=== PATIENT | female | born 1960 | race Two or more races ===

== ENCOUNTER → 2020-09-02 08:05 | Outpatient (BNVA) | payer OTHER, SELFPAY | PROVIDERS: PCP Internal Medicine; Visit Provider Anesthesiology | DX: M41.9 Scoliosis, unspecified (principal); G89.4 Chronic pain syndrome; M46.1 Sacroiliitis, not elsewhere classified | CPT/HCPCS: 99214 ==

== ENCOUNTER 2020-09-06 13:28 | Outpatient (REF) | payer OTHER, SELFPAY ==
--- NOTE | 2020-09-06 | MM_ITS ---
EXAMINATION: MM SCREENING DIGITAL BREAST TOMOSYNTHESIS, BILATERAL CLINICAL INFORMATION: Screening. Asymptomatic. The lifetime risk of breast cancer based on the Tyrer-Cuzick Model is 5%. COMPARISON: Mammography: 08/25/2019, 08/19/2018, 02/01/2017, 07/28/2015 TECHNIQUE: Digital breast tomosynthesis is performed in both the craniocaudal and mediolateral oblique views along with computer-aided detection (CAD). Synthesized 2D images are generated from the tomosynthesis. FINDINGS: There are scattered areas of fibroglandular density (ACR BI-RADS breast composition Category b). There are no significant masses, abnormal calcifications, or other abnormalities. The axilla and skin contours are unremarkable. No significant changes. IMPRESSION: No mammographic evidence of malignancy. ASSESSMENT: BI-RADS 1: Negative RECOMMENDATION: Routine annual mammography screening. This patient's information was entered into a reminder system with a target due date for their next mammogram.
== END 2020-09-06 13:29 | disposition home or self-care (01) ==
LOC: HO.MAMMO 13:28
PROVIDERS: PCP Emergency Medicine; Visit Provider Emergency Medicine
DX: Z12.31 Encounter for screening mammogram for malignant neoplasm of breast (principal)
CPT/HCPCS: 77063; 77067

== ENCOUNTER 2020-09-29 14:39 | Outpatient (REF) | payer OTHER, SELFPAY | END 2020-09-29 14:40 | disposition home or self-care (01) | LOC: HO.LAB 14:39 | PROVIDERS: PCP Emergency Medicine; Visit Provider Internal Medicine | DX: Z20.828 Contact with and (suspected) exposure to other viral communicable diseases (principal) | CPT/HCPCS: C9803; U0003 ==

== ENCOUNTER 2020-10-08 14:40 | Outpatient (REF) | payer OTHER, SELFPAY ==
--- NOTE | 2020-10-08 14:41 | CT_ITS ---
EXAMINATION: CT LUMBAR SPINE WITHOUT CONTRAST CLINICAL INFORMATION: Scoliosis. COMPARISON: Lumbar spine radiographs 05/14/2020. TECHNIQUE: Hatch Tender images were obtained. CT acquisition of the lumbar spine was performed without contrast. Data was reformatted into multiplanar images at the acquisition workstation. This CT examination was performed using dose optimization techniques as appropriate, variously including the following: *Automated exposure control *Adjustment of mA and/or kV according to patient size (this includes techniques or standardized protocols for targeted exams where dose is matched to indication/reason for exam; i.e. extremities or head) *Use of iterative reconstruction technique DLP; 274 mGy-cm FINDINGS: There is spinal scoliosis with a pronounced leftward convex curvature centered at the thoracolumbar junction. Bridging bone fuses multiple consecutive vertebral segments within the visualized thoracic spine and lumbar spine. L4-L5 and L5-S1 remain unfused. Alignment is otherwise normal in the sagittal dimension. Vertebral heights are preserved there is no evidence of acute fracture. There is severe degenerative arthrosis of the articular facet joints at L4-L5 and L5-S1. The canal is not well assessed on this examination due to inherent limitations of CT without intrathecal contrast. Grossly no evidence of canal compromise. Hypertrophic spurring of the left L4-L5 facet joint causes mild to moderate compression of the left L4 foraminal nerve root. Otherwise no neuroforaminal encroachment. Limited visualization of the retroperitoneal anatomy reveals a well marginated benign-appearing cystic lesion within the right kidney. Scattered atheromatous caliber indication involve the abdominal aorta. Psoas and paraspinal muscle groups are symmetric. CT/CT lumbar spine wo con IMPRESSION: There is severe spinal scoliosis with a pronounced leftward convex curvature at the thoracolumbar junction. Bridging bone fuses multiple consecutive vertebral segments within the lower thoracic and lumbar spine. L4-L5 and L5-S1 remain unfused. There is severe degenerative arthrosis of the articular facet joints at L4-L5 and L5-S1. Hypertrophic spurring of the left L4-L5 facet joint causes mild to moderate compression of left L4 foraminal nerve root. Otherwise no neuroforaminal compromise. Grossly no evidence of canal compromise within the [id number] of this examination.
== END 2020-10-08 14:41 | disposition home or self-care (01) ==
LOC: HO.CT 14:40
PROVIDERS: Visit Provider Anesthesiology
DX: M41.9 Scoliosis, unspecified (principal)
CPT/HCPCS: 72131

== ENCOUNTER → 2020-11-08 16:01 | Outpatient (BNVA) | payer OTHER, SELFPAY | PROVIDERS: PCP Emergency Medicine; Visit Provider Anesthesiology | DX: M41.9 Scoliosis, unspecified (principal); G89.4 Chronic pain syndrome; M46.1 Sacroiliitis, not elsewhere classified | CPT/HCPCS: 99212 ==

== ENCOUNTER 2020-11-24 11:54 | Outpatient (REF) | payer OTHER, SELFPAY ==
[2020-11-24 13:12] LABS: MANUAL DIFF FLAG NO
[2020-11-24 13:15] LABS: Basophils Percent Auto 0.6 % (0-2); Eosinophils Absolute Auto 0.2 X10*3/uL (0.0-0.4); Eosinophils Percent Auto 2.3 % (0-4); Hemoglobin 14.3 g/dl (12.0-16.0); Imm Gran Abs Auto 0.02 X10*3/uL (0.00-0.03); Imm Gran Pct Auto 0.3 % (0.0-0.4); Lymphocytes Absolute Auto 2.9 X10*3/uL (1.2-4.9); Lymphocytes Percent Auto 40.9 % (20-40); Mean Corpuscular HGB Conc 33.3 g/dl (31.0-35.0); Mean Corpuscular Hemoglobin 32.2 pg (27.0-33.0); Mean Corpuscular Volume 96.8 fL (80-98); Mean Platelet Volume 11.3 fL (9.4-12.3); Monocytes Absolute Auto 0.5 X10*3/uL (0.1-1.2); Monocytes Percent Auto 7.1 % (2-11); Neutrophils Absolute Auto 3.4 X10*3/uL (2.0-8.3); Neutrophils Percent Auto 48.8 % (45-73); Platelet Count 246 X10*3/uL (160-400); Red Blood Count 4.44 X10*6/uL (4.20-5.50); Red Cell Distribution Width 12.8 % (11.0-16.0)
[2020-11-24 13:38] LABS: Alanine Aminotransferase 17 U/L (0-31); Aspartate Amino Transferase 20 U/L (5-31); Cholesterol 156 mg/dL; HDL Cholesterol 52 mg/dL; LDL Cholesterol Calculated 58 mg/dl; Phosphorus 3.1 mg/dL (2.7-4.5); Triglycerides 230 mg/dL
[2020-11-24 13:40] LABS: Alanine Aminotransferase 16 U/L (0-31); Albumin Level 4.2 g/dL (3.5-5.0); Alkaline Phosphatase 85 U/L (39-117); Anion Gap 13 (12-20); Aspartate Amino Transferase 20 U/L (5-31); Bilirubin Total 0.5 mg/dL (0.0-1.0); Blood Urea Nitrogen 14 mg/dL (9-16); C Reactive Protein 0.06 mg/dL (< or = 0.50); Calcium 9.5 mg/dL (8.4-10.2); Carbon Dioxide 27 mmol/L (22-29); Chloride 105 mmol/L (96-108); Estimated Glomerular Filt Rate > 60; Glucose Random 79 mg/dL (60-115); Potassium 4.7 mmol/l (3.3-5.1); Sodium 140 mmol/L (135-145); Total Protein 7.5 g/dL (6.5-8.0)
[2020-11-24 13:59] LABS: Syphilis Screen Nonreactive (Nonreactive); TSH reflex Free T4 1.64 mIU/mL (0.32-4.0)
[2020-11-24 14:09] LABS: Estimated Average Glucose 111 mg/dL; Hemoglobin A1c % 5.5 %
[2020-11-24 14:12] LABS: Glucose Urine UA NEG (NEG); Leukocyte Esterase Urine NEG (NEG); Nitrite Urine NEG (NEG); Specific Gravity - Urine 1.025 (1.005-1.025); Urine Blood TRACE (NEG); Urine Ketones NEG (NEG); Urine Protein NEG (NEG-TRACE)
[2020-11-24 14:13] LABS: Appearance Urine CLEAR; Color Urine YELLOW
[2020-11-24 14:22] LABS: RBC Urine 0-2 /HPF (0); Squamous Epithelial Cell Urine 1+ /LPF; WBC Urine 0 /HPF (0-4)
[2020-11-24 14:41] LABS: Erythrocyte Sedimentation Rate 10 MM/HR (0-20)
[2020-11-25 10:27] LABS: HBsAGNum1 0.19 S/CO (0.00-0.99); Hepatitis B Surface Antigen Negative (Negative)
[2020-11-25 10:51] LABS: HBS Num1 189.52 mIU/mL (0-7.99); HBc Num1 0.11 S/CO (0.00-0.79); Hepatitis B Core Antibody Nonreactive (Nonreactive); ~Hepatitis B Surface Antibody REACTIVE (Nonreactive); ~Hepatitis C Antibody Reactive (Nonreactive)
[2020-11-25 12:07] LABS: Absolute CD3 Count 2276 cells/uL (840-3060); Absolute CD4 Count 963 cells/uL (490-1740); Absolute CD8 Count 1300 cells/uL (180-1170); Absolute Lymphocytes 3129 cells/uL (850-3900); CD4 CD8 Ratio 0.74 (0.86-5.00); Percent CD3 Cells 73 % (57-85); Percent CD4 Cells 31 % (30-61); Percent CD8 Cells 42 % (12-42)
[2020-11-25 18:27] LABS: C. trachomatis RNA TMA NOT DETECTED (NOT DETECTED); N. gonorrhoeae RNA TMA NOT DETECTED (NOT DETECTED)
[2020-11-26 08:00] LABS: Hepatitis A Antibody IgM 0.29 Index (0-0.79); ~Hepatitis A Antibody IgM Nonreactive (Nonreactive)
[2020-11-26 15:38] LABS: HIV RNA PCR Qn Copies <20 NOT DETECTED copies/mL (NOT DETECTED); HIV RNA PCR Qn Log Copies <1.30 NOT DETECTED (NOT DETECTED)
[2020-11-27 12:17] LABS: TS Negative Control Passed; TS Panel A 2; TS Panel B 2; TS Positive Control Passed; TSpotTB Negative (SeeBelow)
[2020-11-29 17:13] LABS: HSV 1 IgM IFA Negative (Negative); HSV 2 IgM IFA Negative (Negative)
== END 2020-11-24 11:55 | disposition home or self-care (01) ==
LOC: HO.LAB 11:54
PROVIDERS: Absent Provider Internal Medicine Infectious Disease; Visit Provider Student in an Organized Health Care Education/Training Program
DX: M19.90 Unspecified osteoarthritis, unspecified site (principal)
CPT/HCPCS: 36415; 80053; 80061; 81001; 83036; 84100; 84443; 84450; 84460; 85025; 85652; 86140; 86359; 86360; 86481; 86695; 86696; 86704; 86706; 86709; 86780; 86803; 87340; 87491; 87536; 87591

== ENCOUNTER → 2020-11-30 13:44 | Outpatient (BNVA) | payer OTHER, SELFPAY | PROVIDERS: Visit Provider Student in an Organized Health Care Education/Training Program | DX: Z13.89 Encounter for screening for other disorder (principal) | CPT/HCPCS: Q3014 ==

== ENCOUNTER 2021-01-11 07:01 | Outpatient (REF) | payer OTHER, SELFPAY | END 2021-01-11 07:02 | disposition home or self-care (01) | LOC: HO.RADIR 07:01 | PROVIDERS: Visit Provider Anesthesiology | DX: Z13.89 Encounter for screening for other disorder (principal) ==

== ENCOUNTER 2021-09-08 13:55 | Outpatient (REF) | payer OTHER, SELFPAY | END 2021-09-08 13:56 | disposition home or self-care (01) | LOC: HO.MAMMO 13:55 | PROVIDERS: Visit Provider Registered Nurse Community Health | DX: Z13.89 Encounter for screening for other disorder (principal) ==

== ENCOUNTER 2021-11-10 13:00 | Outpatient (REF) | payer OTHER, SELFPAY ==
--- NOTE | ~2021-11-10 | MM_ITS ---
EXAMINATION: MM SCREENING DIGITAL BREAST TOMOSYNTHESIS, BILATERAL CLINICAL INFORMATION: Screening. Asymptomatic. The lifetime risk of breast cancer based on the Tyrer-Cuzick Model is 4%. COMPARISON: Mammography: 09/06/2020, 08/25/2019, 08/19/2018 TECHNIQUE: Digital breast tomosynthesis is performed in both the craniocaudal and mediolateral oblique views along with computer-aided detection (CAD). Synthesized 2D images are generated from the tomosynthesis. FINDINGS: There are scattered areas of fibroglandular density (ACR BI-RADS breast composition Category b). There are no significant masses, abnormal calcifications, or other abnormalities. MM/MM tomosynthesis screening BI IMPRESSION: No mammographic evidence of malignancy. ASSESSMENT: BI-RADS 1: Negative RECOMMENDATION: Routine annual mammography screening. This patient's information was entered into a reminder system with a target due date for their next mammogram.
== END 2021-11-10 13:01 | disposition home or self-care (01) ==
LOC: HO.MAMMO 13:00
PROVIDERS: PCP Registered Nurse Community Health; Visit Provider Registered Nurse Community Health
DX: Z12.31 Encounter for screening mammogram for malignant neoplasm of breast (principal)
CPT/HCPCS: 77063; 77067

== ENCOUNTER 2022-11-16 13:07 | Outpatient (REF) | payer OTHER, SELFPAY ==
--- NOTE | ~2022-11-16 | MM_ITS ---
EXAMINATION: MM SCREENING DIGITAL BREAST TOMOSYNTHESIS, BILATERAL CLINICAL INFORMATION: Screening. Asymptomatic. The lifetime risk of breast cancer based on the Tyrer-Cuzick Model is 4.7%. COMPARISON: Mammography: November 10, 2021 and studies dating back to July 28, 2015 TECHNIQUE: Digital breast tomosynthesis is performed in both the craniocaudal and mediolateral oblique views along with computer-aided detection (CAD). Synthesized 2D images are generated from the tomosynthesis. FINDINGS: There are scattered areas of fibroglandular density (ACR BI-RADS breast composition Category b). There are no significant masses, abnormal calcifications, or other abnormalities. MM/MM tomosynthesis screening BI IMPRESSION: No significant changes from prior exam. ASSESSMENT: BI-RADS 1: Negative RECOMMENDATION: Routine annual mammography screening. This patient's information was entered into a reminder system with a target due date for their next mammogram.
== END 2022-11-16 13:08 | disposition home or self-care (01) ==
LOC: HO.MAMMO 13:07
PROVIDERS: Visit Provider Registered Nurse Community Health
DX: Z12.31 Encounter for screening mammogram for malignant neoplasm of breast (principal)
CPT/HCPCS: 77063; 77067

== ENCOUNTER 2023-06-11 14:09 | Outpatient (REF) | payer OTHER, SELFPAY ==
--- NOTE | ~2023-06-11 | US_ITS ---
EXAMINATION: US THYROID CLINICAL INFORMATION: Enlarged parathyroid gland. COMPARISON: Ultrasound thyroid 02/01/2017. TECHNIQUE: Linear transducer grayscale and color Doppler examination with attention to the region of the thyroid. FINDINGS: SIZE: Measurements of the thyroid lobes and nodules are given in sagittal, anteroposterior and transverse dimensions respectively. Right Thyroid Lobe: 4.7 x 1.5 x 1.6 cm, volume 5.7 mL. Previously 4.4 x 1.5 x 1.2 cm, volume 4.3 mL. Parenchyma: The gland echotexture is homogeneous. Thyroid vascularity is normal. Left Thyroid Lobe: 3.8 x 1.2 x 1.2 cm, volume 2.7 mL. Previously 3.4 x 1.3 x 1.1 cm, volume 2.5 mL. Parenchyma: The gland echotexture is homogeneous. Thyroid vascularity is normal. Isthmus: 0.2 cm in maximum AP dimension. Previously 0.3 cm. Estimated total number of nodules greater than or equal to 1 cm: 0. Speech Professor nodules are described as follows: 1. Location: Left mid. Size: 0.2 x 0.2 x 0.3 cm, volume 0.004 mL. Previously: New since the previous study. Nodule characteristics: Composition: Solid (2). Echogenicity: Hypoechoic (2). Shape: Not taller than wide (0). Margins: Ill-defined (0). Echogenic Foci: None (0). ACR TI-RADS total points: 3 ACR TI-RADS category: 3 NODES: No lymphadenopathy is seen in the tissue surrounding the thyroid gland. ADDITIONAL FINDINGS: A 0.6 x 0.4 x 0.7 cm hyperechoic soft tissue nodule inferior to the left thyroid lobe previously 0.7 x 0.4 x 0.6 cm not significantly changed which may reflect a prominent fatty hilum of a nonenlarged cervical node. A parathyroid adenoma would be considered less likely however if clinical concern recommend correlation with nuclear medicine parathyroid scan. US/US thyroid IMPRESSION: 1. A 0.7 cm hyperechoic soft tissue nodule inferior to the left thyroid lobe previously 0.7 cm not significantly changed which may reflect a prominent fatty hilum of a nonenlarged cervical node. A parathyroid adenoma would be considered less likely however if clinical concern recommend correlation with nuclear medicine parathyroid scan. 2. A 0.3 cm TR 3 left thyroid nodule which does not meet criteria for follow-up.
== END 2023-06-11 14:10 | disposition home or self-care (01) ==
LOC: HO.US 14:09
PROVIDERS: PCP Student in an Organized Health Care Education/Training Program; Visit Provider Student in an Organized Health Care Education/Training Program
DX: E21.5 Disorder of parathyroid gland, unspecified (principal)
CPT/HCPCS: 76536

== ENCOUNTER 2023-06-20 08:13 | Outpatient (REF) | payer OTHER, SELFPAY ==
[2023-06-20 11:20] LABS: MANUAL DIFF FLAG NO
[2023-06-20 11:50] LABS: Basophils Absolute Auto 0.1 X10*3/uL (0.0-0.2); Basophils Percent Auto 0.8 % (0-2); Eosinophils Absolute Auto 0.2 X10*3/uL (0.0-0.4); Eosinophils Percent Auto 2.2 % (0-4); Hematocrit 43.2 % (37.0-47.0); Imm Gran Abs Auto 0.01 X10*3/uL (0.00-0.03); Imm Gran Pct Auto 0.1 % (0.0-0.4); Lymphocytes Absolute Auto 3.2 X10*3/uL (1.2-4.9); Lymphocytes Percent Auto 43.6 % (20-40); Mean Corpuscular HGB Conc 32.4 g/dl (31.0-35.0); Mean Corpuscular Hemoglobin 30.2 pg (27.0-33.0); Mean Corpuscular Volume 93.3 fL (80.0-98.0); Mean Platelet Volume 11.8 fL (9.4-12.3); Monocytes Absolute Auto 0.7 X10*3/uL (0.1-1.2); Monocytes Percent Auto 8.8 % (2-11); Neutrophils Absolute Auto 3.3 x10*3/uL (2.0-8.3); Neutrophils Percent Auto 44.5 % (45-73); Platelet Count 223 X10*3/uL (160-400); Red Blood Count 4.63 X10*6/uL (4.20-5.50); Red Cell Distribution Width 12.7 % (11.0-16.0); White Blood Count 7.4 X10*3/uL (4.8-10.8)
[2023-06-20 12:01] LABS: Estimated Average Glucose 111 mg/dL; Hemoglobin A1c % 5.5 %
[2023-06-20 12:15] LABS: Alanine Aminotransferase 15 U/L (0-31); Albumin Level 3.9 g/dL (3.5-5.0); Alkaline Phosphatase 84 U/L (39-117); Anion Gap 15 (12-20); Aspartate Amino Transferase 20 U/L (5-31); Bilirubin Total 0.4 mg/dL (0.0-1.0); Blood Urea Nitrogen 17 mg/dL (9-16); Calcium 9.7 mg/dL (8.4-10.2); Carbon Dioxide 23 mmol/L (22-29); Chloride 107 mmol/L (96-108); Cholesterol 152 mg/dL; Estimated Glomerular Filt Rate > 60; Glucose Random 95 mg/dL (60-115); HDL Cholesterol 40 mg/dL; LDL Cholesterol Calculated 78 mg/dl; Potassium 4.1 mmol/L (3.3-5.1); Sodium 141 mmol/L (135-145); Total Protein 7.4 g/dL (6.5-8.0); Triglycerides 172 mg/dL
[2023-06-20 12:20] LABS: Creatinine Urine 126.23 mg/dL; HBS Num1 142.77 mIU/mL (0-7.99); HBc Num1 0.13 S/CO (0.00-0.79); HBsAGNum1 0.36 S/CO (0.00-0.99); Hepatitis B Core Antibody Nonreactive (Nonreactive); Hepatitis B Surface Antigen Negative (Negative); Syphilis Screen Nonreactive (Nonreactive); ~Hepatitis B Surface Antibody REACTIVE (Nonreactive)
[2023-06-20 12:21] LABS: ~HepC Num1 9.95 S/CO (0.00-0.79); ~Hepatitis C Antibody Reactive (Nonreactive)
[2023-06-20 12:35] LABS: TSH reflex Free T4 2.17 uIU/mL (0.32-4.0)
[2023-06-21 13:47] LABS: CT PCR NOT DETECTED (Not Detect.); NG PCR NOT DETECTED (Not Detect.)
[2023-06-22 13:12] LABS: HIV RNA PCR Qn Copies 128 copies/mL (NOT DETECTED); HIV RNA PCR Qn Log Copies 2.11 (NOT DETECTED)
[2023-06-23 17:49] LABS: HCV Log PCR <1.18 NOT DETECTED Log IU/mL (NOT DETECTED); HepC Viral Load <15 NOT DETECTED IU/mL (NOT DETECTED)
== END 2023-06-20 08:14 | disposition home or self-care (01) ==
LOC: HO.HHCL 08:13
PROVIDERS: Visit Provider Student in an Organized Health Care Education/Training Program
DX: Z00.00 Encounter for general adult medical examination without abnormal findings (principal); Z20.2 Contact with and (suspected) exposure to infections with a predominantly sexual mode of transmission; Z13.1 Encounter for screening for diabetes mellitus; E21.5 Disorder of parathyroid gland, unspecified; Z13.29 Encounter for screening for other suspected endocrine disorder; Z13.220 Encounter for screening for lipoid disorders
CPT/HCPCS: 0353U; 80053; 80061; 82043; 82306; 83036; 84443; 85025; 86704; 86706; 86780; 86803; 87340; 87522; 87536

== ENCOUNTER 2023-07-19 11:49 | Outpatient (AMB) | payer OTHER, SELFPAY ==
--- NOTE | 2023-07-19 12:12 | A.OFFVIS_ITS ---
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 Allergies No Known Allergies [No Known Allergies*] Allergy (Verified 07/19/23 12:12) Medication List - Last Reconciled 07/19/23 by Carol Farley PA-C [id number] 600-50-300 mg (Triumeq) 1 tab PO DAILY alprazolam (Xanax) 0.5 mg PO DAILY 1 day calcium carbonate-vitamin D3 500 mg-10 mcg (400 unit) 1 tab PO BID omeprazole 20 mg PO DAILY tizanidine 2 mg PO BID PRN valacyclovir 1,000 mg PO DAILY HPI HPI Comments History of Present Illness Details A 62 y/o female referred feeling of something coming up - omeprazole many years- random vomit-she has nause She has a lot of back pain- seen main management- Appetite is fair- No belly pain- feels burning in chest with heartburn- waterbrash-omeprazole better coverage than previous medication- Normal colonoscopy 2015- [facility]- she has no bowel issues- had constipation, that is now resolved. Reviewed medication list No abdominal pain, memetemisis, hematochezia, fever or chills. No CP, SOB, PFSH Medical History Chronic pain syndrome Inflammatory arthritis Sacroiliitis Scoliosis of thoracolumbar spine Surgical History History of back surgery History of liver biopsy Hx of tubal ligation Family History Mother CVD (cardiovascular disease) Diabetes Father CVD (cardiovascular disease) Sister Cancer Diabetes Social History Alcohol intake: never Review of Systems Const All systems reviewed & are unremarkable except as noted in HPI and below Card Denies chest pain and Denies dyspnea Resp Denies dyspnea GI Denies abdominal pain, Denies change in bowel habits, Reports dyspepsia, Reports heartburn and Reports nausea Psych Reports anxiety Physical Exam Vital Signs: Last Vital Signs Pulse 80 07/19/23 12:15 BP 135/80 07/19/23 12:15 BMI result Body Mass Index 25.9 Const General: cooperative, healthy appearing and comfortable Orientation/consciousness: patient oriented x3 Eyes Sclerae: sclerae normal Resp Effort & Inspection: normal respiratory effort and able to speak in complete sentences Auscultation: clear to auscultation bilaterally Cardio Rate: regular rate Rhythm: regular rhythm Heart sounds: S1 normal heart sound present and S2 normal heart sound present GI Palpation (GI): Soft to palpation and nontender Auscultation: normal bowel sounds Skin General skin exam: no rashes or lesions noted Neuro General: patient oriented x3 Extrem General: Yes full ROM Psych Appearance: grossly normal Mental Status: mental status grossly normal Speech and movement: Clear speech present Affect: normal affect Attitude: cooperative Thought process: Normal thought process present Thought content: Normal thought content present Assessment & Plan Assessment & Plan (1) Acid reflux: Comment: has had trial of other ppi- ? carafate Code(s): K21.9 - Gastro-esophageal reflux disease without esophagitis Plan: cont ppi (2) Nausea and vomiting: Comment: EGD- r/o PUD, esophagitis, other endoscopic finding to account for sx- Code(s): R11.2 - Nausea with vomiting, unspecified Plan: Will schedule Barium- may get sooner than EGD- Omeprazole - be consistent Reviewed reflux precautions Plan Barium EGD F/u wks Orders: Orders [place] barium swallow 07/19/23 K21.9 - Gastro-esophageal reflux disease without esophagitis, R11.2 - Nausea with vomiting, unspecified EDG - GI Use Only 07/19/23 K21.9 - Gastro-esophageal reflux disease without esophagitis, R11.2 - Nausea with vomiting, unspecified Patient Instructions: Will schedule Barium- may get sooner than EGD- Omeprazole - be consistent - ID triggers Reviewed reflux precautions, avoid culprits EGD- discussed procedure- need escort, rare risks Will see back for progress- sooner if need Call with any concerns Coding Level of Care Code New Pt Level 3 (35449) Diagnoses Acid reflux K21.9 Nausea and vomiting R11.2 Time Spent (min) 35 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
[2023-07-19 12:15] VITALS: BP 135/80; PULSE 80; BMI 25.9
== END 2023-07-19 12:37 | disposition home or self-care (01) ==
PROVIDERS: PCP Student in an Organized Health Care Education/Training Program; Visit Provider Physician Assistant
DX: K21.9 Gastro-esophageal reflux disease without esophagitis (principal); R11.2 Nausea with vomiting, unspecified
CPT/HCPCS: 99203

== ENCOUNTER → 2023-07-19 11:49 | Outpatient (BNVA) | payer OTHER, SELFPAY | PROVIDERS: PCP Student in an Organized Health Care Education/Training Program; Visit Provider Physician Assistant | DX: K21.9 Gastro-esophageal reflux disease without esophagitis (principal); R11.2 Nausea with vomiting, unspecified | CPT/HCPCS: 99202 ==

== ENCOUNTER 2023-08-10 08:37 | Day surgery (SDC) | payer OTHER, SELFPAY ==
[2023-08-08 14:31] VITALS: BMI 25.9
--- NOTE | 2023-08-09 12:07 | HO.ANESPROP2 ---
HPI - Anesthesia Eval Consult details Narrative: 62yo F for Upper Endoscopy PMFSH Active Problems Active Problems: All Active Problems (Updated 07/24/23 @ 10:40 by Carol Farley PA-C) Nausea and vomiting (Acute) Acid reflux (Acute) Inflammatory arthritis (Acute) Sacroiliitis (Acute) Chronic pain syndrome (Acute) Scoliosis of thoracolumbar spine (Acute) Past Medical History Medical History (Updated 08/20/23 @ 11:18 by Tito Santiago MD) Insomnia Asthma HIV disease Inflammatory arthritis Sacroiliitis Chronic pain syndrome Scoliosis of thoracolumbar spine Family History Family History Mother CVD (cardiovascular disease) Diabetes Father CVD (cardiovascular disease) Sister Cancer Diabetes Surgical History Surgical History Hx of esophagogastroduodenoscopy History of liver biopsy History of back surgery Hx of tubal ligation Social History Social History Alcohol intake: never Patient Tobacco Use Status: Former Tobacco user Quit Date: 1 yr ago Meds Allergies Allergy/AdvReac Type Severity Reaction Status Date / Time No Known Allergies Allergy Verified 08/20/23 09:38 [No Known Allergies*] Home Medications Medication Instructions Recorded Confirmed Last Taken Type valacyclovir 1 gram tablet 1,000 mg PO DAILY 09/02/20 08/20/23 Unknown History cabotegravir ER 400 mg/2 ml IM 08/10/23 08/20/23 Unknown History mL-rilpivirine ER 600 mg/2mL IM suspension,ER (Cabenuva) albuterol sulfate 90 mcg/actuation 2 puff inhalation Q4-6H PRN 08/20/23 08/20/23 Unknown History aerosol inhaler (Ventolin HFA) fluticasone propionate 110 2 puff inhalation BID 08/20/23 08/20/23 Unknown History mcg/actuation HFA aerosol inhaler (Flovent HFA) omeprazole 20 mg tablet,delayed 40 mg PO DAILY 08/20/23 08/20/23 Unknown History release zolpidem 10 mg tablet 10 mg PO BEDTIME PRN 08/20/23 08/20/23 Unknown History Exam Exam Date and Time: August 09, 2023 1207 Height,Weight and Vital Signs: Height 4 ft 9 in Weight 54.199 kg Pertinent Lab Results Pertinent Lab Results: Laboratory Tests 06/20/23 08:18 WBC 7.4 Hgb 14.0 Hct 43.2 Plt Count 223 Sodium 141 Potassium 4.1 Chloride 107 Carbon Dioxide 23 BUN 17 H Creatinine 0.80 Assessment and Plan Assessment Anesthesia Assessment: Chart Reviewed
[2023-08-10 09:19] VITALS: BP 112/69; PULSE 59; RESP 15; TEMP 35.9; O2SAT 96
--- NOTE | 2023-08-10 09:21 | MHC.SHP ---
Pre-Procedural Eval Section A Date of Service: 08/10/23 Section B Chief Complaint: Gastro-esophageal reflux disease without esophagit Details of Present Illness: dysphagia Relevant Family History (Specify if Yes): No Relevant Social History: None Present Medications: see Short Stay Collaborative assessment Medical History: Significant History (Chronic pain syndrome Inflammatory arthritis Sacroiliitis Scoliosis of thoracolumbar spine) History of Previous Operations: Relevant previous surgery/procedure and date(s) (History of back surgery History of liver biopsy Hx of tubal ligation) Allergies: Allergies Allergy/AdvReac Type Severity Reaction Status Date / Time No Known Allergies Allergy Verified 07/19/23 12:12 [No Known Allergies*] Review of Systems Sugical H&P ROS: Negative: Constitution, Cardiovascular, Respiratory, Neurological, Psychiatric, Hem-Onc, Allergic/Immunologic, Gastrointestinal, Genitourinary, Musculoskeletal, Integumentary, Endocrine and Eyes/Ears/Nose/Throat Exam Surgical H&P Exam: Normal: HEENT, Normal: Heart, Normal: Lungs, Normal: Extremities, Normal: Abdomen, Normal: Skin and Normal: Neurological Plan Diagnosis/Plan: Unchanged I have reviewed the history and physical and performed a pertinent physical examination on my patient. No changes have occurred unless specified. Time Spent With Patient Time: Total time managing care of this patient today ____ minutes.
[2023-08-10] MEDS: Lactated Ringers 1,000 ML 100 ML IVCONT (09:22)
--- NOTE | 2023-08-10 09:51 | HO.ANESPROP2 ---
[facility] Active Problems Active Problems: All Active Problems (Updated 08/10/23 @ 08:51 by Shannon Carter RN) Nausea and vomiting (Acute) Acid reflux (Acute) Inflammatory arthritis (Acute) Sacroiliitis (Acute) Chronic pain syndrome (Acute) Scoliosis of thoracolumbar spine (Acute) Past Medical History Medical History HIV disease Inflammatory arthritis Sacroiliitis Chronic pain syndrome Scoliosis of thoracolumbar spine Family History Family History Mother CVD (cardiovascular disease) Diabetes Father CVD (cardiovascular disease) Sister Cancer Diabetes Family history of problems with anesthesia: No Surgical History Surgical History Hx of esophagogastroduodenoscopy History of liver biopsy History of back surgery Hx of tubal ligation History of Problems with Anesthesia: No Social History Social History Alcohol intake: never Patient Tobacco Use Status: Former Tobacco user Quit Date: 1 yr ago Use of substances other than those prescribed or required for medical reasons: No Are you DNR?: No Advance Directives: No Advance Directives Information Provided: Yes Meds Allergies Allergy/AdvReac Type Severity Reaction Status Date / Time No Known Allergies Allergy Verified 07/19/23 12:12 [No Known Allergies*] Active Medications: Current Medications Lactated Ringer's (Lr) 1,000 mls @ 100 mls/hr IVCONT .Q10H MIKY Last Admin: 08/10/23 09:22 Dose: 100 mls/hr Home Medications Medication Instructions Recorded Confirmed Last Taken Type calcium carbonate 500 mg-vitamin 1 tab PO BID 09/02/20 11/08/20 Unknown History D3 10 mcg (400 unit) tablet tizanidine 2 mg tablet 2 mg PO BID PRN Pain 09/02/20 11/08/20 Unknown History valacyclovir 1 gram tablet 1,000 mg PO DAILY 09/02/20 11/08/20 Unknown History omeprazole 20 mg tablet,delayed 20 mg PO DAILY 11/30/20 Unknown History release amoxicillin 875 mg-potassium 1 tab PO BID 08/10/23 08/10/23 Unknown History clavulanate 125 mg tablet cabotegravir ER 400 mg/2 ml IM 08/10/23 08/10/23 Unknown History mL-rilpivirine ER 600 mg/2mL IM suspension,ER (Cabenuva) Exam Exam Date and Time: August 10, 2023 0951 Height,Weight and Vital Signs: Height 4 ft 9 in Weight 54.199 kg Last Vital Signs Temp 96.7 F L 08/10/23 09:19 Pulse 59 08/10/23 09:19 Resp 15 08/10/23 09:19 BP 112/69 08/10/23 09:19 Pulse Ox 96 08/10/23 09:19 O2 Del Method Room Air 08/10/23 09:19 Airway Mallampati Class: II TM Dist: >3cm Neck ROM: Full Heart: RRR Lungs: CTA Assessment and Plan Assessment Anesthesia Assessment: Anesthesia Plan Discussed Final Anesthetic Review Family History of Problems with Anesthesia: No History of Problems with Anesthesia: No NPO: Yes ASA Class: II Final Preanesthetic Review: Meds/Allgs Chart Reviewed, Consent Obtained/Reviewed and Anes Risks/Benef Reviewed Patient Risk: Low Procedure Risk: Low Anesthetic Plan Anesthetic Plan: MAC: Disposition: Standard PACU
--- NOTE | 2023-08-10 10:39 | W.PM.OPN ---
Operative Note Operative Note Date of Service: 08/10/23 Narrative: Procedure Description: EGD Indication: gerd, dysphagia Anesthesia: MAC FLEXIBLE TRANSORAL UPPER GASTROINTESTINAL ENDOSCOPY UPPER ENDOSCOPY Consent: Indications for the procedure and potential complications of bleeding, perforation, reaction to medications and missed diagnosis were discussed with the patient and informed consent was obtained. Instrument: Olympus GIF H 190 J mid size upper endoscope Monitoring: Vital signs and clinical assessment, continuous EKG monitoring, Pulse oximetry, Carbon Dioxide monitoring and blood pressure monitoring were done throughout the procedure. Procedure: The patient was placed in the left lateral decubitis position and pre-procedure medications were administered and a bite block was placed. The endoscope was inserted into the mouth and advanced under direct vision to the third part of duodenum. A careful inspection was made as the upper endoscope was withdrawn including a retroflexed examination of the proximal stomach; Findings and interventions are described below. Findings: Larynx:normal Esophagus: GE junction at 28 cm, diaphragm hiatus at 34 cm, consistent with 6 cm sliding hiatal hernia, balloon dilation 18 mm at UES with tear noted, dilated to 19 mm at LES with small tear seen, bx taken from GEJ and random esophagus --esophagitis noted at GEJ Stomach: Patchy gastric erythema. Biopsies were obtained. Grade 2 flap valve on retroflexed examination of the cardia. Duodenum: Normal bulb and descending duodenum, Intervention: Biopsies as noted above, balloon dilation Impression/Findings: gastritis esophageal strictures esophgaitis PLAN: high dose PPI Reflux precautions Magic mouthwash consider surgical referral for hernia repair
[2023-08-10 10:47] VITALS: BP 89/49; PULSE 63; RESP 16; TEMP 36.1; O2SAT 98
[2023-08-10 10:52] VITALS: BP 104/61; PULSE 62; RESP 14; O2SAT 97
[2023-08-10 11:02] VITALS: BP 114/65; PULSE 58; RESP 16; O2SAT 98
[2023-08-10] MEDS: Acetaminophen 325 MG TABLET 975 MG PO (11:09)
[2023-08-10] MEDS: Mag&Al/Sim/Diphenhyd/Lidocaine 10 ML ORAL.SUSP PO (11:10)
[2023-08-10 11:17] VITALS: BP 124/69; PULSE 66; RESP 14; TEMP 36.1; O2SAT 98
--- NOTE | 2023-08-10 11:19 | HO.POSTANES ---
Post Anesthesia Evaluation Post Anesthesia Evaluation Date of Service: 08/10/23 Vital Signs: Vital Signs Temp Pulse Resp BP Pulse Ox O2 Del Method 08/10/23 11:02 58 16 114/65 98 Room Air 08/10/23 10:52 62 14 104/61 97 Room Air 08/10/23 10:47 97 F 63 16 89/49 L 98 Room Air 08/10/23 09:19 96.7 F L 59 15 112/69 96 Room Air Anesthesia: Monitored Mental Status: Awake Pain Control: Satisfactory Nausea/Vomiting: None Hydration: Adequate Anesthesia-Related Issues: No Anes. Related Issues
== END 2023-08-10 11:32 | disposition home or self-care (01) ==
PROVIDERS: PCP Student in an Organized Health Care Education/Training Program; Visit Provider Internal Medicine Gastroenterology
PROC: 0DJ08ZZ Inspection of Upper Intestinal Tract, Via Natural or Artificial Opening Endoscopic (ICD-10-PCS; CPT 43235; principal; 2023-08-10 10:10)
DX: R13.10 Dysphagia, unspecified (principal); K21.9 Gastro-esophageal reflux disease without esophagitis; K22.2 Esophageal obstruction; K29.50 Unspecified chronic gastritis without bleeding; K44.9 Diaphragmatic hernia without obstruction or gangrene; B20 Human immunodeficiency virus [HIV] disease; G89.4 Chronic pain syndrome; M13.80 Other specified arthritis, unspecified site; M46.1 Sacroiliitis, not elsewhere classified; M41.9 Scoliosis, unspecified; Z79.899 Other long term (current) drug therapy; Z98.890 Other specified postprocedural states
CPT/HCPCS: 43249; 43239; 88305; 88342; C1726

== ENCOUNTER → 2023-08-10 08:37 | Outpatient (BNV) | payer OTHER, SELFPAY | PROVIDERS: PCP Student in an Organized Health Care Education/Training Program; Visit Provider Internal Medicine Gastroenterology | DX: K21.9 Gastro-esophageal reflux disease without esophagitis (principal); K22.2 Esophageal obstruction; R13.10 Dysphagia, unspecified; K44.9 Diaphragmatic hernia without obstruction or gangrene; K29.70 Gastritis, unspecified, without bleeding | CPT/HCPCS: 43239; 43249 ==

== ENCOUNTER 2023-08-20 09:22 | Outpatient (AMB) | payer OTHER, SELFPAY ==
--- NOTE | 2023-08-20 09:24 | A.OFFVIS_ITS ---
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 Meza for a large hiatal hernia. The patient complains of persistent GERd and a sense of choking or being out of breath PFSH Medical History (Updated 08/20/23 @ 11:18 by Tito Santiago MD) Insomnia Asthma HIV disease Inflammatory arthritis Sacroiliitis Chronic pain syndrome Scoliosis of thoracolumbar spine Surgical History Hx of esophagogastroduodenoscopy History of liver biopsy History of back surgery Hx of tubal ligation Family History Mother CVD (cardiovascular disease) Diabetes Father CVD (cardiovascular disease) Sister Cancer Diabetes Social History Alcohol intake: never Patient Tobacco Use Status: Former Tobacco user Quit Date: 1 yr ago Physical Exam Vital Signs: Last Vital Signs Temp 96.8 F 08/20/23 09:29 Pulse 74 08/20/23 09:29 BP 141/67 H 08/20/23 09:29 Pulse Ox 96 08/20/23 09:29 Oxygen Delivery Method Room Air 08/20/23 09:29 BMI result Body Mass Index 25.2 GI Inspection: Yes normal to inspection (abdroid body habitus) and Yes incision (well healed) Palpation (GI): Soft to palpation Extrem Right lower extremity: normal to inspection Left lower extremity: normal to inspection Assessment & Plan Assessment & Plan (1) Acid reflux: Comment: has had trial of other ppi- ? carafate Code(s): K21.9 - Gastro-esophageal reflux disease without esophagitis Plan: 1. We discussed the potential etiology of the hernia that could be of traumatic etiology worsened by his weight. We discussed the details of the diaphragmatic hernia repair and the potential technical challenges such as being able to achieve enough mobilization of the esophagus back in the abdomen and being able to close the diaphragmatic muscle (crura) primarily with sutures. We also discussed the possibility of using a biologic mesh to close the hernia defect if the crura cannot be adequately re-approximated primarily with sutures. We also discussed the option of doing a gastropexy or a fundoplication to prevent postoperative reflux and prevent hernia recurrence. As we discussed, I favor the gastropexy as the fundoplication can cause several distrurbing symptoms such as gas-bloating, flatulence, inability to burp which can be bothersome to patients especially for him with a history of IBS. Also we discussed the complexity of a potential hernia recurrence in association with a hernia recurrence. He was in agreement not to have a fundoplication. 2. Start Sucralfate 2 teaspoons every 6 hours 3. It will be essential due to the body habitus to lose weight preoperatively. 4. Nutritional counseling. Start with 2 CELEBRATE REBUILD protein (buy at hospital's gift shop) shakes (HALF scoop EACH in 8oz low fat unsweetened almond milk each) at 11am-1pm and 2pm-4pm, dinner at 5pm (7 forks of protein and 7 forks of salad/vegetables) AND TWO CELEBRATE protein bars after dinner at 7pm- 9pm and 11pm-1am. So you do 2 protein shakes, 2 protein bars and one meal per day. Meal to include lean meat (beef, fish, pork, turkey, chicken), or ku[place]i yogurt, or egg whites, or beans with a salad with olive oil and fruits (berries, pears, apples, kiwi). Avoid salt, breads, potatoes, rice, pasta, desserts. 5. Each shake would be drunk slowly, like coffee in a period of 2 hours. 6. Cut each bar in 4 pieces and eat each piece in 30min ?to make each bar last 2 hours. 7. I emphasized the importance of measuring accurately the food portion and measure it when serving the food in plate 8. The meal portions include 10 full-size forks of meat and 10 full-size forks of salad. You always eat the meat portion but you can replace up to 5 forks for salad/vegetables with rice, potatoes or pasta, or a fruit ?if you like. The less you do it the better weight loss will be. 9. One full-size fork is what it can be scooped on the fork without falling aside and not what can be bit with the fork. Use regular forks like those you find in a typical restaurant. 10.? Please send me weight measurements as soon as possible and then once a week. Always include your diet and exercise plan. 9. Start treadmill with an incline of 2.0 and speed of 2.5. Increase incline by 1 every 3 min to a max incline of 8.0, stay 3min at 8.0 and then return to 2.0 and repeat same steps until calorie goal is met. Goal is to burn 2000 calories per week on exercise, which means either 300 calories daily, or 400 calories 5 days per week, or 500 calories 4 days per week, or 650 calories 3 days per week. 10. Alternatively start stationary bike at a resistance level of 4.0 Increase level by 1.0 every 3 min to a max level of 10.0. Stay at this level for 3 min and then return to level 4.0 and repeat same steps until 300 calories are burned. Velocity target is 12mph and heart rate is 145 bpm. Goal is to burn 2000 calories per week on exercise 11. Goal is to lose at least 1.5-2lbs per week (2) Diaphragmatic hernia: Code(s): K44.9 - Diaphragmatic hernia without obstruction or gangrene (3) Asthma: Code(s): J45.909 - Unspecified asthma, uncomplicated (4) HIV disease: Code(s): B20 - Human immunodeficiency virus [HIV] disease (5) Insomnia: Code(s): G47.00 - Insomnia, unspecified (6) Scoliosis of thoracolumbar spine: Code(s): M41.9 - Scoliosis, unspecified Coding Level of Care Code New Pt Level 5 (58456) Diagnoses Acid reflux K21.9 Diaphragmatic hernia K44.9 Asthma J45.909 HIV disease B20 Insomnia G47.00 Scoliosis of thoracolumbar spine M41.9 Time Spent (min) 60 Comment With a Italian speaking diplomatic interpreter/translator
[2023-08-20 09:29] VITALS: BP 141/67; PULSE 74; TEMP 36; O2SAT 96; BMI 25.2
== END 2023-08-20 11:26 | disposition home or self-care (01) ==
PROVIDERS: PCP Student in an Organized Health Care Education/Training Program; Visit Provider Surgery
DX: K44.9 Diaphragmatic hernia without obstruction or gangrene (principal); J45.909 Unspecified asthma, uncomplicated; B20 Human immunodeficiency virus [HIV] disease; G47.00 Insomnia, unspecified; M41.9 Scoliosis, unspecified
CPT/HCPCS: 99205

== ENCOUNTER → 2023-08-20 09:22 | Outpatient (BNVA) | payer OTHER, SELFPAY | PROVIDERS: PCP Student in an Organized Health Care Education/Training Program; Visit Provider Surgery ==

== ENCOUNTER 2023-09-26 07:42 | Outpatient (REF) | payer OTHER, SELFPAY ==
--- NOTE | ~2023-09-26 | FL_ITS ---
EXAMINATION: XR FLUOROSCOPY BARIUM SWALLOW AND UPPER GI WITH AIR CLINICAL INFORMATION: Reflux, nausea/vomiting COMPARISON: None relevant. TECHNIQUE: Fluoroscopic air contrast upper GI examination was performed utilizing standard techniques with thin and thick barium and effervescent granules. Numerous spot images were obtained. 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 No evidence of stricture, mass, or ulcerations identified. Nonpropulsive tertiary contractions are noted throughout the esophagus consistent with esophageal dysmotility. A large type III hiatal hernia is present. Gastroesophageal reflux is seen up to the thoracic inlet. Dual contrast and single contrast images of the stomach demonstrated slightly abnormal gastric fold appearance, especially in the fundus/hiatus hernia. Hyperplastic tiny polyps are likely present. Remainder of the stomach has the appearance of atrophic gastritis. No ulcerations. No masses or contour abnormalities. Contrast freely passed into the gastric antrum and duodenal bulb without delay. Single and air-contrast images of the duodenal bulb demonstrate no abnormality. The duodenal sweep has a normal appearance, course, and mucosal fold appearance. The imaged proximal jejunum has a normal fold pattern and caliber. FLUOROSCOPY TIME: 4 minutes 10 seconds Number of Spot Images: 10 Number of Cine: 8 DOSE AREA PRODUCT: 2528 uGy-m2 (microgray-meter squared) FL/FL barium swallow with air IMPRESSION: 1. 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 2. Esophageal dysmotility, moderate to marked. 3. Large type III hiatal hernia. Contains the majority of the fundus of the stomach. 4. Significant spontaneous esophageal reflux. 5. Slightly abnormal gastric folds noted, some suggesting small polyps, otherwise the pattern resembles atrophic gastritis. Correlation with endoscopy advised. 6. Normal-appearing duodenal bulb, sweep, and proximal jejunum. This procedure was performed by Salazar Luna PA-C, and supervised by Dr. Campoverde
== END 2023-09-26 07:43 | disposition home or self-care (01) ==
LOC: HO.XRAY 07:42
PROVIDERS: PCP Student in an Organized Health Care Education/Training Program; Visit Provider Physician Assistant
DX: K21.9 Gastro-esophageal reflux disease without esophagitis (principal); R11.2 Nausea with vomiting, unspecified
CPT/HCPCS: 74221

== ENCOUNTER → 2023-09-26 07:44 | Outpatient (BNV) | payer OTHER, SELFPAY | PROVIDERS: PCP Student in an Organized Health Care Education/Training Program; Visit Provider Radiology Diagnostic Radiology | DX: K21.9 Gastro-esophageal reflux disease without esophagitis (principal) | CPT/HCPCS: 74221 ==

== ENCOUNTER 2023-10-25 11:42 | Outpatient (AMB) | payer OTHER, SELFPAY ==
--- NOTE | 2023-10-25 11:45 | A.OFFVIS_ITS ---
Intake Vital Signs 10/25/23 11:47 Height 5 ft 9.5 in Weight 119 lb 0.794 oz BMI 17.3 BP 133/75 Blood Pressure Location Lt brachial Position Sitting Pulse 63 Intake Visit Reasons: follow up Ba Swallow results Intake Note: She is here today to go over the results to the ba swallow. Allergies No Known Allergies [No Known Allergies*] Allergy (Verified 08/20/23 09:38) Medication List - Last Reconciled 10/25/23 by Carol Farley PA-C albuterol sulfate 90 mcg/actuation (Ventolin HFA) 2 puffs inhalation Q4-6H PRN cabotegravir-rilpivirine 400 mg/2 mL- 600 mg/2 mL ER (Cabenuva) mL IM docusate sodium 100 mg PO BID fluticasone propionate 110 mcg/actuation (Flovent HFA) 2 puffs inhalation BID loratadine 10 mg PO DAILY omeprazole 40 mg PO DAILY valacyclovir 1,000 mg PO DAILY zolpidem 10 mg PO BEDTIME PRN HPI HPI Comments History of Present Illness Details 62-year-old female follows up after rece nt barium swallow She had had EGD back in July which showed esophageal stricture she was then sent for barium-she had been sent to surgery in the interim Reviewed EGD findings- Esophagus: GE junction at 28 cm, diaphragm hiatus at 34 cm, consistent with 6 cm sliding hiatal hernia, balloon dilation 18 mm at UES with tear noted, dilated to 19 mm at LES with small tear seen, bx taken from GEJ and random esophagus --esophagitis noted at GEJ Stomach: Patchy gastric erythema. Biopsies were obtained. Grade 2 flap valve on retroflexed examination of the cardia. Duodenum: Normal bulb and descending duodenum, Intervention: Biopsies as noted above, balloon dilation She saw Dr. Ty- she declines surgery- she was recommended wt loss- omeprazole 40 BID She declined surgery, she would prefer to manage without. She is reluctant to lose weight to have the surgery as was recommended. She has had no further reflux symptoms Appetite is good She has no GI complaints She is here with her daughter who interprets for her She has no nausea, vomiting, hematemesis, hematochezia fever chills [facility] Medical History (Updated 10/25/23 @ 13:42 by Carol Farley PA-C) Insomnia Asthma HIV disease Inflammatory arthritis Sacroiliitis Chronic pain syndrome Scoliosis of thoracolumbar spine Surgical History (Updated 10/02/23 @ 14:36 by Macey Baker) Hx of esophagogastroduodenoscopy History of liver biopsy History of back surgery Hx of tubal ligation Family History Mother CVD (cardiovascular disease) Diabetes Father CVD (cardiovascular disease) Sister Cancer Diabetes Social History Alcohol intake: never Patient Tobacco Use Status: Former Tobacco user Quit Date: 1 yr ago Review of Systems Const All systems reviewed & are unremarkable except as noted in HPI and below Card Denies chest pain and Denies dyspnea Resp Denies dyspnea GI Denies abdominal pain, Denies change in stool character, Denies heartburn and Denies loose stools Physical Exam Vital Signs: Last Vital Signs Pulse 63 10/25/23 11:47 BP 133/75 10/25/23 11:47 BMI result Body Mass Index 17.3 Const General: cooperative, healthy appearing, comfortable and no acute distress Orientation/consciousness: patient oriented x3 Limitations: language barrier Eyes Sclerae: sclerae normal Resp Effort & Inspection: normal respiratory effort and able to speak in complete sentences Skin General skin exam: no rashes or lesions noted Neuro General: patient oriented x3 Extrem General: Yes full ROM Psych Appearance: grossly normal and well kempt Mental Status: mental status grossly normal Speech and movement: Normal speech and movement present and Clear speech present Affect: normal affect Attitude: cooperative Thought process: Normal thought process present Thought content: Normal thought content present Results Reviewed Results Reviewed: 08/10/23-Dr. Meza mpression/Findings: gastritis esophageal strictures esophgaitis PLAN: high dose PPI Reflux precautions Magic mouthwash consider surgical referral for hernia repair FL/FL barium swallow with air IMPRESSION: 1. 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 2. Esophageal dysmotility, moderate to marked. 3. Large type III hiatal hernia. Contains the majority of the fundus of the stomach. 4. Significant spontaneous esophageal reflux. 5. Slightly abnormal gastric folds noted, some suggesting small polyps, otherwise the pattern resembles atrophic gastritis. Correlation with endoscopy advised. 6. Normal-appearing duodenal bulb, sweep, and proximal jejunum. Assessment & Plan Assessment & Plan (1) Hiatal hernia: Comment: Declined surgery, continue PPI avoid weight gain Code(s): K44.9 - Diaphragmatic hernia without obstruction or gangrene Plan: Continue to follow with Dr. Santiago for plan of care (2) Acid reflux: Comment: has had trial of other ppi- ? carafate Code(s): K21.9 - Gastro-esophageal reflux disease without esophagitis (3) Feline esophagus: Comment: Barium swallow Code(s): K22.89 - Other specified disease of esophagus Plan: Reinforced good management of acid reflux Plan ck w/ T how long ppi 40 bid REF ppi 40 QD- RTC 3 mos Medications: Changed From omeprazole 40 mg PO DAILY To omeprazole 40 mg (2 x 20 mg) PO DAILY 30 days 60 tabs 4RF Patient Instructions: Pleasant 62-year-old female large hiatal hernia him follows up after barium swallow She will continue to monitor symptoms, however refilled omeprazole 40 mg daily-she will report any worsening of symptoms Reviewed reflux precautions-reinforced importance of good management of acid reflux Reviewed dietary modifications, avoid weight gain Encouraged to call with any questions or concerns Follow-up with Dr. Santiago her plan of care for large hiatal hernia Coding Level of Care Code Est Pt Level 4 (31359) Diagnoses Hiatal hernia K44.9 Acid reflux K21.9 Feline esophagus K22.89 Time Spent (min) 30 Comment Daughter interpreted
[2023-10-25 11:47] VITALS: BP 133/75; PULSE 63; BMI 17.3
== END 2023-10-25 13:50 | disposition home or self-care (01) ==
PROVIDERS: PCP Student in an Organized Health Care Education/Training Program; Visit Provider Physician Assistant
DX: K44.9 Diaphragmatic hernia without obstruction or gangrene (principal); K21.9 Gastro-esophageal reflux disease without esophagitis; K22.89 Other specified disease of esophagus
CPT/HCPCS: 99214

== ENCOUNTER → 2023-10-25 11:42 | Outpatient (BNVA) | payer OTHER, SELFPAY | PROVIDERS: PCP Student in an Organized Health Care Education/Training Program; Visit Provider Physician Assistant | DX: K44.9 Diaphragmatic hernia without obstruction or gangrene (principal); K21.9 Gastro-esophageal reflux disease without esophagitis; K22.89 Other specified disease of esophagus | CPT/HCPCS: 99212 ==

== ENCOUNTER 2023-11-22 12:54 | Outpatient (REF) | payer OTHER, SELFPAY | END 2023-11-22 12:55 | disposition home or self-care (01) | LOC: HO.MAMMO 12:54 | PROVIDERS: PCP Student in an Organized Health Care Education/Training Program; Visit Provider Student in an Organized Health Care Education/Training Program | DX: Z12.31 Encounter for screening mammogram for malignant neoplasm of breast (principal) | CPT/HCPCS: 77063; 77067; 77080 ==

== ENCOUNTER → 2023-11-22 13:15 | Outpatient (BNV) | payer OTHER, SELFPAY | PROVIDERS: PCP Student in an Organized Health Care Education/Training Program; Visit Provider Radiology Diagnostic Radiology | DX: Z12.31 Encounter for screening mammogram for malignant neoplasm of breast (principal) | CPT/HCPCS: 77063; 77067 ==

== ENCOUNTER 2024-03-24 19:31 | Outpatient (REF) | payer OTHER, SELFPAY | END 2024-03-24 19:32 | disposition home or self-care (01) | LOC: HO.HHCLNP 19:31 | PROVIDERS: Visit Provider Internal Medicine | DX: N30.91 Cystitis, unspecified with hematuria (principal) | CPT/HCPCS: 87086; 87088; 87186 ==

== ENCOUNTER 2024-10-24 10:19 | Outpatient (REF) | payer OTHER, SELFPAY ==
[2024-10-24 10:59] LABS: Hematocrit 41.4 % (37.0-47.0); Hemoglobin 13.9 g/dl (12.0-16.0); Mean Corpuscular HGB Conc 33.6 g/dl (31.0-35.0); Mean Corpuscular Hemoglobin 30.8 pg (27.0-33.0); Mean Corpuscular Volume 91.6 fL (80.0-98.0); Mean Platelet Volume 11.3 fL (9.4-12.3); Platelet Count 247 X10*3/uL (160-400); Red Blood Count 4.52 X10*6/uL (4.20-5.50); White Blood Count 7.3 X10*3/uL (4.8-10.8)
[2024-10-24 11:37] LABS: Estimated Average Glucose 114 mg/dL; Hemoglobin A1C 174.1026 umol/L; Hemoglobin A1c % 5.6 % (<6.0); Total Hemoglobin (HGBA1C) 4633.5529 umol/L
[2024-10-24 12:42] LABS: CT PCR NOT DETECTED (Not Detect.); NG PCR NOT DETECTED (Not Detect.)
[2024-10-24 13:41] LABS: Alanine Aminotransferase 15 U/L (0-31); Albumin Level 4.1 g/dL (3.5-5.0); Alkaline Phosphatase 91 U/L (39-117); Anion Gap 10 (12-20); Aspartate Amino Transferase 27 U/L (5-31); Bilirubin Total 0.5 mg/dL (0.0-1.0); Blood Urea Nitrogen 19 mg/dL (9-16); Calcium 9.3 mg/dL (8.4-10.2); Carbon Dioxide 25 mmol/L (22-29); Chloride 110 mmol/L (96-108); Cholesterol 148 mg/dL (<200); Estimated Glomerular Filt Rate > 60; Glucose Random 95 mg/dL (60-115); HDL Cholesterol 49 mg/dL (>40); LDL Cholesterol Calculated 82 mg/dL (<100); Sodium 141 mmol/L (135-145); Total Protein 7.7 g/dL (6.5-8.0); Triglycerides 85 mg/dL (<150)
[2024-10-24 13:57] LABS: TSH reflex Free T4 0.63 uIU/mL (0.32-4.0); Vitamin D 25-OH Total 31.3 ng/mL (>30)
[2024-10-27 08:14] LABS: HBS Num1 137.32 mIU/mL (0-7.99); HBc Num1 0.08 S/CO (0.00-0.79); HBsAGNum1 0.44 S/CO (0.00-0.99); Hepatitis B Core Antibody Nonreactive (Nonreactive); Hepatitis B Surface Antigen Negative (Negative); ~HepC Num1 10.99 S/CO (0.00-0.79); ~Hepatitis B Surface Antibody REACTIVE (Nonreactive); ~Hepatitis C Antibody Reactive (Nonreactive)
[2024-10-27 08:46] LABS: Syphilis Screen Nonreactive (Nonreactive)
[2024-10-29 19:53] LABS: HCV Log PCR <1.18 NOT DETECTED Log IU/mL (NOT DETECTED); HepC Viral Load <15 NOT DETECTED IU/mL (NOT DETECTED)
== END 2024-10-24 10:20 | disposition home or self-care (01) ==
LOC: HO.HHCL 10:19
PROVIDERS: Visit Provider Student in an Organized Health Care Education/Training Program
DX: Z00.00 Encounter for general adult medical examination without abnormal findings (principal); Z13.1 Encounter for screening for diabetes mellitus
CPT/HCPCS: 36415; 80053; 80061; 82306; 83036; 84443; 85027; 86704; 86706; 86780; 86803; 87340; 87491; 87522; 87591

== ENCOUNTER 2024-11-27 14:08 | Outpatient (REF) | payer OTHER, SELFPAY | END 2024-11-27 14:09 | disposition home or self-care (01) | LOC: HO.MAMMO 14:08 | PROVIDERS: PCP Student in an Organized Health Care Education/Training Program; Visit Provider Student in an Organized Health Care Education/Training Program | DX: Z12.31 Encounter for screening mammogram for malignant neoplasm of breast (principal) | CPT/HCPCS: 77063; 77067 ==

== ENCOUNTER → 2024-11-27 14:15 | Outpatient (BNV) | payer OTHER, SELFPAY | PROVIDERS: PCP Student in an Organized Health Care Education/Training Program; Visit Provider Internal Medicine | DX: Z12.31 Encounter for screening mammogram for malignant neoplasm of breast (principal) | CPT/HCPCS: 77063; 77067 ==

== ENCOUNTER → 2024-12-18 14:30 | Outpatient (BNV) | payer OTHER, SELFPAY | PROVIDERS: PCP Student in an Organized Health Care Education/Training Program; Visit Provider Internal Medicine | DX: N63.11 Unspecified lump in the right breast, upper outer quadrant (principal) | CPT/HCPCS: 76642; 77065; G0279 ==

== ENCOUNTER 2024-12-18 14:31 | Outpatient (REF) | payer OTHER, SELFPAY ==
--- NOTE | ~2024-12-18 | US_ITS ---
EXAMINATION: MM DIAGNOSTIC DIGITAL BREAST TOMOSYNTHESIS, RIGHT Limited right breast ultrasound. CLINICAL INFORMATION: Call back from screening for focal asymmetry in the upper outer right breast. COMPARISON: Mammography: Comparison is made with available prior examinations. TECHNIQUE: Digital breast tomosynthesis is performed in both the craniocaudal and mediolateral oblique views along with computer-aided detection (CAD). Synthesized 2D images are generated from the tomosynthesis. Limited right breast ultrasound. FINDINGS: There are scattered areas of fibroglandular density (ACR BI-RADS breast composition Category b). Focal asymmetry in the upper outer breast posterior depth partially effaces on additional imaging projections. Suspicious calcifications or other abnormal findings. Targeted color Doppler ultrasound scanning in the upper outer quadrant demonstrates a hypoechoic solid irregular mass at 10:00 4 7 m from nipple measuring 3 x 5 x 6 mm this is a questionable correlate for the asymmetry seen on mammography. US/US breast RT limited mamm only IMPRESSION: Solid irregular mass at 10:00 4 cm from the nipple recommend ultrasound-guided core needle biopsy for further confirmation. The findings and recommendations were discussed with the patient the procedure will be scheduled.. ASSESSMENT: BI-RADS BI-RADS 4 - Suspicious finding RECOMMENDATION: Biopsy recommended Results were provided to the patient at time of visit by the technologist. This patient's information was entered into a reminder system with a target due date for their next mammogram. Electronically signed by: Maya Hansen DO 12/18/2024 03:30 PM REN[facility] Workstation: [id number]
== END 2024-12-18 14:32 | disposition home or self-care (01) ==
LOC: HO.MAMMO 14:31
PROVIDERS: PCP Student in an Organized Health Care Education/Training Program; Visit Provider Student in an Organized Health Care Education/Training Program
DX: N64.89 Other specified disorders of breast (principal)
CPT/HCPCS: 76642; 77061; 77065

== ENCOUNTER 2025-01-08 13:46 | Outpatient (AMB) | payer OTHER, SELFPAY ==
--- NOTE | 2025-01-08 13:51 | MHC.OFFVIS ---
Vital Signs 01/08/25 14:00 Height 4 ft 9 in Weight 116 lb 13.52 oz BMI 25.3 Pulse 72 Intake Visit Reasons: US Guided Bx RT 10 o'clock mass Intake Note: Patient is seen in office for ultrasound biopsy CONSULT right breast 10 o'clock mass. 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 Accompanied by: Family/Other Allergies No Known Allergies [No Known Allergies*] Allergy (Verified 01/08/25 13:55) Medication List - Last Reconciled 01/08/25 by Maninder Leahy MD albuterol sulfate 90 mcg/actuation (Ventolin HFA) 2 puffs inhalation Q4-6H PRN cabotegravir-rilpivirine 400 mg/2 mL- 600 mg/2 mL ER (Cabenuva) mL IM fluticasone propionate 110 mcg/actuation (Flovent HFA) 2 puffs inhalation BID loratadine 10 mg PO DAILY omeprazole 40 mg (2 x 20 mg) PO DAILY 30 days valacyclovir 1,000 mg PO DAILY zolpidem 10 mg PO BEDTIME PRN HPI Comments Details: 64-year-old female patient presenting with a screening mammogram performed on 11/27/2024 in additional mammographic views and ultrasound performed on 12/18/2024. This revealed a solid irregular mass in the 10 o'clock position, 4 cm from the nipple. Ultrasound-guided core needle biopsy is recommended. (BI-RADS 4). She is scheduled for a ultrasound biopsy at the [facility] on 01/21/2025. She reports a previous history of a palpable mass in the left breast in the which initially was going to be biopsy but subsequently resolved spontaneously. She denies any other breast surgeries. Currently she denies any breast symptoms of pain, redness, discharge, palpable mass or enlarged lymph nodes. Her family history is negative for breast cancer. She is and her 1st child was born when she was 16. Her menarche was at age 14. REPLACED BY [facility] Medical History Insomnia Asthma HIV disease Inflammatory arthritis Sacroiliitis Chronic pain syndrome Scoliosis of thoracolumbar spine Surgical History Hx of esophagogastroduodenoscopy History of liver biopsy History of back surgery Hx of tubal ligation Family History Mother CVD (cardiovascular disease) Diabetes Father CVD (cardiovascular disease) Sister Cancer Diabetes Social History Alcohol intake: never Patient Tobacco Use Status: Former Tobacco user Female Reproductive History Menstrual Age of Menarche: 14 Total pregnancies: 4 Number of Living Children: 3 Review of Systems Const All systems reviewed & are unremarkable except as noted in HPI and below Denies chills, Denies fever(s), Denies headache(s), Denies poor appetite and Denies weakness ENT Denies headache(s) Card Denies chest pain, Denies irregular heart rhythm, Denies palpitations and Denies dyspnea Resp Denies cough, Denies excessive phlegm production and Denies dyspnea GI Denies abdominal pain, Denies bloating, Denies change in bowel habits, Denies constipation, Denies heartburn, Denies diarrhea, Denies nausea and Denies vomiting Denies urinary frequency Musc Denies back pain, Denies muscle weakness and Denies numbness Skin/Breast Denies changing lesions and Denies unusual bruising Neuro Denies headache(s), Denies numbness, Denies paresthesias and Denies weakness Psych Denies anxiety and Denies depression Endo Denies palpitations Wilbur/Lymph Denies lymphadenopathy Physical Exam Const General: cooperative and no acute distress Nutritional Appearance: well nourished Orientation/consciousness: patient oriented x3 Limitations: no limitations HEENT Head: Yes normocephalic and Yes atraumatic Ears: hearing grossly normal bilaterally Chest Other: Left breast: No skin change, no nipple retraction, no nipple discharge, no palpable mass, no enlarged lymph nodes. Right breast: No skin change, no nipple retraction, no nipple discharge, no palpable mass, no enlarged lymph nodes Resp Effort & Inspection: normal respiratory effort, no audible wheezes, no cough and no respiratory distress Cardio Jugular venous distension: no JVD GI Inspection: Yes normal to inspection Skin Other: Warm, dry, no rash Neuro General: patient oriented x3 Extrem General: Yes no clubbing, cyanosis or edema Assessment & Plan Assessment & Plan (1) Abnormal ultrasound of breast: Code(s): R92.8 - Other abnormal and inconclusive findings on diagnostic imaging of breast Category: Medical (2) Abnormal mammogram of right breast: Code(s): R92.8 - Other abnormal and inconclusive findings on diagnostic imaging of breast Category: Medical Plan 64-year-old female patient presenting with a recent mammogram and ultrasound which revealed a suspicious density in the right breast at 10:00 o'clock position. This was felt to be suspicious for malignancy and biopsy was recommended. She is scheduled for an ultrasound-guided core biopsy at the [facility] on 01/21/2025. She denies a previous history of breast surgery or breast biopsies. Family history is negative for breast cancer. Examination today revealed no suspicious findings in either breast. No enlarged lymph nodes were identified. I recommended she return approximately 1 week following the ultrasound-guided core biopsy to review the biopsy results and discuss treatment options as necessary. Orders: Orders US breast ndl core biopsy RT Today R92.8 - Other abnormal and inconclusive findings on diagnostic imaging of breast Coding Level of Care Code New Pt Level 4 (68688) Diagnoses Abnormal ultrasound of breast R92.8 Abnormal mammogram of right breast R92.8
[2025-01-08 14:00] VITALS: PULSE 72; BMI 25.3
== END 2025-01-08 14:16 | disposition home or self-care (01) ==
PROVIDERS: PCP Student in an Organized Health Care Education/Training Program; Visit Provider Surgery
DX: R92.8 Other abnormal and inconclusive findings on diagnostic imaging of breast (principal)
CPT/HCPCS: 99204

== ENCOUNTER → 2025-01-08 13:46 | Outpatient (BNVA) | payer OTHER, SELFPAY | PROVIDERS: PCP Student in an Organized Health Care Education/Training Program; Visit Provider Surgery | DX: N63.11 Unspecified lump in the right breast, upper outer quadrant (principal) | CPT/HCPCS: 99202 ==

== ENCOUNTER 2025-01-21 09:58 | Outpatient (REF) | payer OTHER, SELFPAY ==
--- NOTE | ~2025-01-21 | MM_ITS ---
PROCEDURE: ULTRASOUND-GUIDED RIGHT BREAST BIOPSY CLINICAL INFORMATION: Solid mass at 10:00 4 cm from the nipple on ultrasound. COMPARISON: Available priors on PACS. TECHNIQUE: The details of the procedure, as well as the risks, benefits, and alternatives to the procedure were explained to the patient in detail and all of her questions were answered, after which, written informed consent was obtained. PROCEDURE: Prior to the procedure, sonography revealed solid mass right breast 10:00 4 cm from the nipple.. A time-out was performed, the lesion intended for biopsy was targeted and the skin of the right breast was then prepped and draped in the usual sterile fashion. Using sonographic guidance, sterile technique, and 1% lidocaine without epinephrine for local anesthesia, a total of 5 cores were obtained through the targeted area with a 14-gauge biopsy device. At the completion of tissue sampling, a single coil metallic clip was deposited at the biopsy site. An appropriate sample was obtained. The postprocedure 2-view direct digital mammogram reveals satisfactory positioning of the biopsy clip. The patient tolerated the procedure well and, after assuring adequate hemostasis, was discharged in good condition after reviewing postbiopsy breast care instructions. Final pathology results are pending. MM/MM tomosynthesis diagnostic RT IMPRESSION: 1. Uncomplicated sonographically-guided core biopsy of the right breast. The 2-view direct digital postprocedure mammogram reveals satisfactory positioning of the biopsy clip. 2. Final pathology results are pending. A separate report with final recommendations will be issued once these results are made available. Electronically signed by: Maya Hansen DO 01/21/2025 11:05 AM REN[facility] STANTON
[2025-01-21] MEDS: Sodium Bicarbonate 8.4% 50 MEQ/50 ML VIAL SUBCUT (10:46)
[2025-01-21] MEDS: Lidocaine HCl 1 % 20 ML VIAL 9 ML SUBCUT (10:48)
== END 2025-01-21 09:59 | disposition home or self-care (01) ==
LOC: HO.MAMMO 09:58
PROVIDERS: PCP Student in an Organized Health Care Education/Training Program; Visit Provider Surgery
DX: N63.11 Unspecified lump in the right breast, upper outer quadrant (principal)
CPT/HCPCS: 19083; 77061; 77065; 88305; 88341; 88342; 88360; A4648; J2003

== ENCOUNTER → 2025-01-21 10:01 | Outpatient (BNV) | payer OTHER, SELFPAY | PROVIDERS: PCP Student in an Organized Health Care Education/Training Program; Visit Provider Internal Medicine | DX: N63.14 Unspecified lump in the right breast, lower inner quadrant (principal) | CPT/HCPCS: 19083; 77065 ==

== ENCOUNTER 2025-01-29 15:19 | Outpatient (AMB) | payer OTHER, SELFPAY ==
[2025-01-29 15:21] VITALS: BP 127/58; BMI 25.4
--- NOTE | 2025-01-29 15:21 | MHC.OFFVIS ---
Vital Signs 01/29/25 15:21 Height 4 ft 9 in Weight 117 lb 4.575 oz BMI 25.4 BP 127/58 L Blood Pressure Location Rt brachial Position Sitting Intake Visit Reasons: follow up Intake Note: Patient in office today in follow up of US core breast bx. CC: Patient reports doing well and denies any concerns regarding her breast. Quality Intern Required: No Accompanied by: Family/Other Allergies No Known Allergies [No Known Allergies*] Allergy (Verified 01/29/25 15:24) Medication List - Last Reconciled 01/29/25 by Maninder Leahy MD albuterol sulfate 90 mcg/actuation (Ventolin HFA) 2 puffs inhalation Q4-6H PRN cabotegravir-rilpivirine 400 mg/2 mL- 600 mg/2 mL ER (Cabenuva) mL IM .every month fluticasone propionate 110 mcg/actuation (Flovent HFA) 2 puffs inhalation BID loratadine 10 mg PO DAILY omeprazole 40 mg (2 x 20 mg) PO DAILY 30 days valacyclovir 1,000 mg PO DAILY zolpidem 10 mg PO BEDTIME PRN HPI Comments Details: 64-year-old female patient presenting with a screening mammogram performed on 11/27/2024 in additional mammographic views and ultrasound performed on 12/18/2024. This revealed a solid irregular mass in the 10 o'clock position, 4 cm from the nipple. Ultrasound-guided core needle biopsy is recommended. (BI-RADS 4). She reports a previous history of a palpable mass in the left breast in the which initially was going to be biopsy but subsequently resolved spontaneously. She denies any other breast surgeries. Currently she denies any breast symptoms of pain, redness, discharge, palpable mass or enlarged lymph nodes. Her family history is negative for breast cancer. She is and her 1st child was born when she was 16. Her menarche was at age 14. She underwent right breast ultrasound-guided core biopsy on 01/21/2025. Pathology revealed focal intraductal proliferation, suspicious, but not diagnostic for atypical ductal hyperplasia. Additional sampling is recommended. A copy of the report was provided to the patient and the results were discussed in detail. [facility] Medical History Insomnia Asthma HIV disease Inflammatory arthritis Sacroiliitis Chronic pain syndrome Scoliosis of thoracolumbar spine Surgical History Hx of esophagogastroduodenoscopy History of liver biopsy History of back surgery Hx of tubal ligation Family History Mother CVD (cardiovascular disease) Diabetes Father CVD (cardiovascular disease) Sister Cancer Diabetes Social History Alcohol intake: never Patient Tobacco Use Status: Former Tobacco user Female Reproductive History Menstrual Age of Menarche: 14 Review of Systems Const All systems reviewed & are unremarkable except as noted in HPI and below Denies chills, Denies fever(s), Denies headache(s), Denies poor appetite and Denies weakness ENT Denies headache(s) Card Denies chest pain, Denies irregular heart rhythm, Denies palpitations and Denies dyspnea Resp Denies cough, Denies excessive phlegm production and Denies dyspnea GI Denies abdominal pain, Denies bloating, Denies change in bowel habits, Denies constipation, Denies heartburn, Denies diarrhea, Denies nausea and Denies vomiting Denies urinary frequency Musc Denies back pain, Denies muscle weakness and Denies numbness Skin/Breast Denies changing lesions and Denies unusual bruising Neuro Denies headache(s), Denies numbness, Denies paresthesias and Denies weakness Psych Denies anxiety and Denies depression Endo Denies palpitations Wilbur/Lymph Denies lymphadenopathy Physical Exam Vital Signs: Last Vital Signs BP 127/58 L 01/29/25 15:21 BMI result Body Mass Index 25.4 Const General: cooperative and no acute distress Nutritional Appearance: well nourished Orientation/consciousness: patient oriented x3 Limitations: no limitations HEENT Head: Yes normocephalic and Yes atraumatic Ears: hearing grossly normal bilaterally Chest Other: Left breast: No skin change, no nipple retraction, no nipple discharge, no palpable mass, no enlarged lymph nodes. Right breast: No skin change, no nipple retraction, no nipple discharge, no palpable mass, no enlarged lymph nodes Resp Effort & Inspection: normal respiratory effort, no audible wheezes, no cough and no respiratory distress Cardio Jugular venous distension: no JVD GI Inspection: Yes normal to inspection Skin Other: Warm, dry, no rash Neuro General: patient oriented x3 Extrem General: Yes no clubbing, cyanosis or edema Assessment & Plan Assessment & Plan (1) Abnormal ultrasound of breast: Code(s): R92.8 - Other abnormal and inconclusive findings on diagnostic imaging of breast Category: Medical (2) Abnormal mammogram of right breast: Code(s): R92.8 - Other abnormal and inconclusive findings on diagnostic imaging of breast Category: Medical Plan 64-year-old female patient presenting with a recent mammogram and ultrasound which revealed a suspicious density in the right breast at 10:00 o'clock position. This was felt to be suspicious for malignancy and biopsy was recommended. She underwent ultrasound-guided core biopsy of the right breast on 01/21/2025. This revealed focal intraductal peripheral duration suspicious but not diagnostic for atypical ductal hyperplasia. Additional sampling is recommended. I reviewed the pathology and discussed the reason for additional sampling. I recommended a right breast lumpectomy with localizer as a short-stay surgery and after discussion of the procedure, risks, and alternatives, she consents to the surgery. Coding Level of Care Code Est Pt Level 4 (80852) Diagnoses Abnormal ultrasound of breast R92.8 Abnormal mammogram of right breast R92.8
== END 2025-01-29 15:51 | disposition home or self-care (01) ==
PROVIDERS: PCP Student in an Organized Health Care Education/Training Program; Visit Provider Surgery
DX: R92.8 Other abnormal and inconclusive findings on diagnostic imaging of breast (principal)
CPT/HCPCS: 99214

== ENCOUNTER → 2025-01-29 15:19 | Outpatient (BNVA) | payer OTHER, SELFPAY | PROVIDERS: PCP Student in an Organized Health Care Education/Training Program; Visit Provider Surgery | DX: R92.8 Other abnormal and inconclusive findings on diagnostic imaging of breast (principal) | CPT/HCPCS: 99212 ==

== ENCOUNTER 2025-03-19 09:36 | Outpatient (REF) | payer OTHER, SELFPAY ==
--- NOTE | ~2025-03-19 | MM_ITS ---
EXAMINATION: Ultrasound GUIDED RFID LOCALIZATION BREAST, RIGHT CLINICAL INFORMATION: Right breast 10:00 biopsy with atypia. COMPARISON: Priors on PACS. TECHNIQUE NEEDLE LOC: Proper informed consent is Obtained from the patient after discussion of the procedure, potential risks and complications, and alternatives including declining the procedure today. Patient was given an opportunity for questions. The patient appeared to understand. The patient consented to the procedure and signed the consent form. GUIDANCE: Ultrasound. APPROACH: Lateral. TARGET: Marker clip in the mass at 10:00 4 7 m from the nipple right breast.. ANESTHESIA: lidocaine LOCALIZATION SYSTEM: [employer] LOCallizer Wire-Free Guidance System with 12g needle applicator. RADIOFREQUENCY TAG: ID # [id number] RF Tag ID confirmed with LOCalizer Guidance System prior to placement. The skin is prepped and local anesthesia administered. The needle is positioned and RFID tag deployed. Final images demonstrate the LOCalizer RF tag to reside adjacent to the clip and within the mass The patient tolerated the procedure well and had no immediate complications. Dressing placed and home instructions reviewed. MM/MM tomosynthesis diagnostic RT IMPRESSION: -Status post right breast RFID localization. Electronically signed by: Maya Hansen DO 03/19/2025 10:57 AM EDT
--- NOTE | ~2025-03-19 | US_ITS ---
EXAMINATION: Ultrasound GUIDED RFID LOCALIZATION BREAST, RIGHT CLINICAL INFORMATION: Right breast 10:00 biopsy with atypia. COMPARISON: Priors on PACS. TECHNIQUE NEEDLE LOC: Proper informed consent is Obtained from the patient after discussion of the procedure, potential risks and complications, and alternatives including declining the procedure today. Patient was given an opportunity for questions. The patient appeared to understand. The patient consented to the procedure and signed the consent form. GUIDANCE: Ultrasound. APPROACH: Lateral. TARGET: Marker clip in the mass at 10:00 4 7 m from the nipple right breast.. ANESTHESIA: lidocaine LOCALIZATION SYSTEM: [employer] LOCallizer Wire-Free Guidance System with 12g needle applicator. RADIOFREQUENCY TAG: ID # [id number] RF Tag ID confirmed with LOCalizer Guidance System prior to placement. The skin is prepped and local anesthesia administered. The needle is positioned and RFID tag deployed. Final images demonstrate the LOCalizer RF tag to reside adjacent to the clip and within the mass The patient tolerated the procedure well and had no immediate complications. Dressing placed and home instructions reviewed. US/US Breast RF Tag Device Right IMPRESSION: -Status post right breast RFID localization. Electronically signed by: Maya Hansen DO 03/19/2025 10:57 AM EDT
[2025-03-19] MEDS: Lidocaine HCl 1 % 20 ML VIAL 7 ML SUBCUT (10:30)
[2025-03-19] MEDS: Sodium Bicarbonate 8.4% 50 MEQ/50 ML VIAL SUBCUT (10:31)
== END 2025-03-19 09:37 | disposition home or self-care (01) ==
LOC: HO.MAMMO 09:36
PROVIDERS: PCP Student in an Organized Health Care Education/Training Program; Visit Provider Surgery
DX: R92.8 Other abnormal and inconclusive findings on diagnostic imaging of breast (principal)
CPT/HCPCS: 19285; 77061; 77065; C1819; J2003

== ENCOUNTER → 2025-03-19 10:00 | Outpatient (BNV) | payer OTHER, SELFPAY | PROVIDERS: PCP Student in an Organized Health Care Education/Training Program; Visit Provider Internal Medicine | DX: N60.91 Unspecified benign mammary dysplasia of right breast (principal) | CPT/HCPCS: 19285; 77065 ==

== ENCOUNTER 2025-03-23 11:39 | Outpatient (REF) | payer OTHER, SELFPAY ==
--- NOTE | ~2025-03-23 | XR_ITS ---
EXAMINATION: XR WRIST 3 OR MORE VIEWS LEFT HISTORY: ongoing pain in radial wrist aspect with swelling COMPARISON: There are no prior studies available for comparison. FINDINGS: Four views of the left wrist, including a scaphoid view are submitted. Osseous mineralization is normal. There is no fracture or dislocation. The joint spaces are preserved. The soft tissues are unremarkable. XR/XR wrist LT min 3V IMPRESSION: Unremarkable examination of the left wrist. Electronically signed by: Silvano Roman MD 03/25/2025 08:58 AM EDT
== END 2025-03-23 11:40 | disposition home or self-care (01) ==
LOC: HO.HHCX 11:39
PROVIDERS: Visit Provider Student in an Organized Health Care Education/Training Program
DX: M25.532 Pain in left wrist (principal)
CPT/HCPCS: 73110

== ENCOUNTER → 2025-03-23 11:40 | Outpatient (BNV) | payer OTHER, SELFPAY | PROVIDERS: Visit Provider Radiology Diagnostic Radiology | DX: M25.532 Pain in left wrist (principal) | CPT/HCPCS: 73110 ==

== ENCOUNTER 2025-03-25 09:08 | Day surgery (SDC) | payer OTHER, SELFPAY ==
--- NOTE | 2025-03-23 15:05 | P.CONAN_ITS ---
Documented by User: Melissa Murray NP 03/23/25 15:06 HPI - Anesthesia Eval Consult details Narrative: 64yo F for Right Breast Lumpectomy w/LOCalizer PMFSH Active Problems Active Problems: All Active Problems Abnormal mammogram of right breast (Acute) Abnormal ultrasound of breast (Acute) Feline esophagus (Acute) Hiatal hernia (Acute) Insomnia (Acute) HIV disease (Acute) Asthma (Acute) Diaphragmatic hernia (Acute) Nausea and vomiting (Acute) Acid reflux (Acute) Inflammatory arthritis (Acute) Sacroiliitis (Acute) Chronic pain syndrome (Acute) Scoliosis of thoracolumbar spine (Acute) Past Medical History Medical History Insomnia Asthma HIV disease Inflammatory arthritis Sacroiliitis Chronic pain syndrome Scoliosis of thoracolumbar spine Family History Family History Mother CVD (cardiovascular disease) Diabetes Father CVD (cardiovascular disease) Sister Cancer Diabetes Family history of problems with anesthesia: No Surgical History Surgical History Hx of esophagogastroduodenoscopy History of liver biopsy History of back surgery Hx of tubal ligation History of Problems with Anesthesia: No Social History Social History Household Members Other:: granddaughter Are you a primary neonatal critical care nurse to a significant other at home: No Do you presently have visiting nurse or other home services: No Alcohol intake: never Patient Tobacco Use Status: Current someday Tobacco user Tobacco use type: Cigarette Meds Allergies Allergy/AdvReac Type Severity Reaction Status Date / Time No Known Allergies Allergy Verified 03/25/25 09:44 [No Known Allergies*] Home Medications ?Medication ?Instructions ?Recorded ?Confirmed ?Last Taken ?Type valacyclovir 1 gram tablet 1,000 mg PO DAILY 09/02/20 03/25/25 Unknown History albuterol sulfate 90 mcg/actuation 2 puff inhalation Q4-6H PRN 08/20/23 03/25/25 Unknown History aerosol inhaler (Ventolin HFA) Bronchospasm fluticasone propionate 110 2 puff inhalation BID 08/20/23 03/25/25 Unknown History mcg/actuation HFA aerosol inhaler (Flovent HFA) zolpidem 10 mg tablet 10 mg PO BEDTIME PRN insomnia 08/20/23 03/25/25 Unknown History loratadine 10 mg tablet 10 mg PO DAILY 10/25/23 03/25/25 Unknown History cabotegravir ER 400 mg/2 ml IM 03/25/25 03/25/25 Unknown History mL-rilpivirine ER 600 mg/2mL IM suspension,ER (Cabenuva) Assessment and Plan Assessment Anesthesia Assessment: Chart Reviewed Final Anesthetic Review Family History of Problems with Anesthesia: No History of Problems with Anesthesia: No Documented by User: Sugey Hickman MD 03/25/25 10:04 [facility] Active Problems Active Problems: All Active Problems Abnormal mammogram of right breast (Acute) Abnormal ultrasound of breast (Acute) Feline esophagus (Acute) Hiatal hernia (Acute) Insomnia (Acute) HIV disease (Acute) Asthma (Acute) Diaphragmatic hernia (Acute) Nausea and vomiting (Acute) Acid reflux (Acute) Inflammatory arthritis (Acute) Sacroiliitis (Acute) Chronic pain syndrome (Acute) Scoliosis of thoracolumbar spine (Acute) Smoker- last smoked this morning Left hand swollen up to lower forearm- patient had an XRay of the wrist which was read as unremarkable Past Medical History Medical History Insomnia Asthma HIV disease Inflammatory arthritis Sacroiliitis Chronic pain syndrome Scoliosis of thoracolumbar spine Family History Family History Mother CVD (cardiovascular disease) Diabetes Father CVD (cardiovascular disease) Sister Cancer Diabetes Family history of problems with anesthesia: No Surgical History Surgical History Hx of esophagogastroduodenoscopy History of liver biopsy History of back surgery Hx of tubal ligation History of Problems with Anesthesia: No Social History Social History Household Members Other:: granddaughter Are you a primary neonatal critical care nurse to a significant other at home: No Do you presently have visiting nurse or other home services: No Alcohol intake: never Patient Tobacco Use Status: Current someday Tobacco user Tobacco use type: Cigarette Meds Allergies Allergy/AdvReac Type Severity Reaction Status Date / Time No Known Allergies Allergy Verified 03/25/25 09:44 [No Known Allergies*] Home Medications ?Medication ?Instructions ?Recorded ?Confirmed ?Last Taken ?Type valacyclovir 1 gram tablet 1,000 mg PO DAILY 09/02/20 03/25/25 Unknown History albuterol sulfate 90 mcg/actuation 2 puff inhalation Q4-6H PRN 08/20/23 03/25/25 Unknown History aerosol inhaler (Ventolin HFA) Bronchospasm fluticasone propionate 110 2 puff inhalation BID 08/20/23 03/25/25 Unknown History mcg/actuation HFA aerosol inhaler (Flovent HFA) zolpidem 10 mg tablet 10 mg PO BEDTIME PRN insomnia 08/20/23 03/25/25 Unknown History loratadine 10 mg tablet 10 mg PO DAILY 10/25/23 03/25/25 Unknown History cabotegravir ER 400 mg/2 ml IM 03/25/25 03/25/25 Unknown History mL-rilpivirine ER 600 mg/2mL IM suspension,ER (Cabenuva) Exam Height,Weight and Vital Signs: Height 4 ft 9 in Weight 52 kg Vital Signs Temp Pulse Resp BP Pulse Ox O2 Del Method 03/25/25 09:41 98.0 F 80 18 143/76 H 99 Room Air Airway Mallampati Class: II TM Dist: >3cm Neck ROM: Full Partial: Upper Loose/Missing/Broken Teeth: Yes (Missing some teeth bottom. No loose teeth. Chipped tooth topfront) Heart: RRR Lungs: CTAB Assessment and Plan Assessment Anesthesia Assessment: Anesthesia Plan Discussed and Chart Reviewed Final Anesthetic Review Family History of Problems with Anesthesia: No History of Problems with Anesthesia: No NPO: Yes ASA Class: III Final Preanesthetic Review: No Changes in Pt Med Stat, Meds/Allgs Chart Reviewed, Consent Obtained/Reviewed and Anes Risks/Benef Reviewed Patient Risk: Intermediate Procedure Risk: Low Assessment/Block/Sedation in SS: Assess/Block/Sedation-SS Anesthetic Plan Anesthetic Plan: GA Disposition: Standard PACU
[2025-03-25] VITALS (8 sets, daily range): BP systolic 120–143; BP diastolic 66–76; PULSE 69–87; RESP 16–19; TEMP 36.1–36.7; O2SAT 94–99; BMI 24.8
--- NOTE | ~2025-03-25 | MM_ITS ---
Single right breast specimen radiograph demonstrates the tag and the coil clip within the specimen. Electronically signed by: Maya Hansen DO 03/25/2025 11:56 AM EDT
[2025-03-25] MEDS: Lactated Ringers 1,000 ML 100 ML IVCONT (09:28)
[2025-03-25] MEDS: Albuterol Sulfate (0.083%) 2.5 MG/3 ML VIAL.NEB INHALE (09:35)
--- NOTE | 2025-03-25 09:57 | P.HPSUR_ITS ---
Pre-Procedural Eval Section A - 24 Hr Update-Section A only Date of Service: 03/25/25 The patient is an INPATIENT: No Changes since office visit: Yes Patient answered all questions; No Cold of Flu in the past 2 weeks, No New Medical Problems and No Changes in Medication The patient has been examined within 24 hours of the surgical procedure. The History & Physical has been completed within 30 days and I have reviewed it.: No Section B - Complete if H&P > 30 days Chief Complaint: Other abnormal and inconclusive findings on diagno Details of Present Illness: Patient has no symptoms at this time Relevant Family History (Specify if Yes): No Relevant Social History: None Present Medications: see Short Stay Collaborative assessment Medical History: No relevant PMH History of Previous Operations: No relevant previous surgery Allergies: Allergies Allergy/AdvReac Type Severity Reaction Status Date / Time No Known Allergies Allergy Verified 03/25/25 09:44 [No Known Allergies*] Review of Systems Sugical H&P ROS: Negative: Constitution, Cardiovascular, Respiratory, Hem-Onc, Allergic/Immunologic, Gastrointestinal, Genitourinary, Musculoskeletal and Int egumentary Exam Surgical H&P Exam: Normal: HEENT, Normal: Heart, Normal: Lungs, Normal: Extremities, Normal: Abdomen and Normal: Skin Plan Diagnosis/Plan: Unchanged I have reviewed the history and physical and performed a pertinent physical examination on my patient. No changes have occurred unless specified. Time Spent With Patient Time: Total time managing care of this patient today ____ minutes.
[2025-03-25] MEDS: ceFAZolin Sodium/Dextrose,Iso 2 GM/50 ML PIGGYBACK IV (10:17)
--- NOTE | 2025-03-25 11:31 | P.OP_ITS ---
Operative Note Operative Note Date of Service: 03/25/25 Narrative: Preoperative diagnosis: Possible right breast atypical ductal hyperplasia Postoperative diagnosis: Same Procedure: Right breast lumpectomy with localizer Surgeon: Maninder Leahy MD Aircraft Engine Dismantler: Paz Gill PA-C; JOSE Nugent Anesthesia: General LMA Indications for procedure: 64-year-old female presenting with a recent mammogram which revealed an area of architectural distortion felt to be leyva spicious. She subsequently underwent core biopsy which revealed findings bordering on atypical ductal hyperplasia. She presents today for right breast lumpectomy. Operative findings: Marking clip and localizer clip found within the specimen x-ray. Gross pathology revealed a 2nd lesion in the lateral margin. Additional lateral margin breast tissue was obtained as well. Specimen: Right breast lumpectomy, lateral margin Estimated blood loss: 15 mL Complications: None Procedure details: Patient was brought to the OR and placed in a supine position. After administering general anesthesia the patient's right breast was prepped with ChloraPrep and draped in a sterile fashion. A surgical time-out was called the consent confirmed. Patient received preoperative antibiotics and Venodyne boots were in place. Local anesthesia was infiltrated over the upper outer quadrant. Using the localizer as a guide a transverse incision was created with a scalpel and carried out through subcutaneous tissue. Superior and inferior skin flaps were then created using electrocautery. Again using the localizer device a core of tissue surrounding the localizing clip was then obtained beginning at the superior margin, and then moving onto the medial margin, inferior margin, posterior margin and finally the lateral margin. The specimen was passed off the table and a specimen x-ray performed in the OR. This confirmed the marking clip and localizer clip within the specimen. Specimen was then sent to pathology for gross examination. Gross examination revealed the primary lesion to be well within the specimen. A 2nd lesion was noted in the lateral portion of the specimen. It was suggested the additional lateral margin be obtained. An additional portion of the lateral margin was th en sent as a separate specimen labeled lateral margin. Wounds were then checked for hemostasis which was achieved using electrocautery. Wounds were irrigated with saline solution and suctioned dry. Deep breast tissue was reapproximated using interrupted 3-0 Polysorb sutures. Superficial breast tissue and dermis were then reapproximated using interrupted 3-0 Polysorb sutures. Skin was then closed using a running subcuticular 4-0 Polysorb suture. Steri-Strips, 4 x 4 gauze and Tegaderm were then applied. The patient tolerated the procedure well. Sponge, instrument, and needle counts reported as correct. The patient was transferred to PACU in stable condition.
[2025-03-25] MEDS: fentaNYL citrate/PF 100 MCG/2 ML VIAL 25 MCG IVPUSH (12:05)
[2025-03-25] MEDS: oxyCODONE HCl Immed Release 5 MG TABLET PO (12:15)
== END 2025-03-25 12:49 | disposition home or self-care (01) ==
PROVIDERS: PCP Student in an Organized Health Care Education/Training Program; Visit Provider Surgery
PROC: (CPT 19301; principal; 2025-03-25 12:00)
DX: N60.81 Other benign mammary dysplasias of right breast (principal); N60.11 Diffuse cystic mastopathy of right breast; N64.89 Other specified disorders of breast; B20 Human immunodeficiency virus [HIV] disease; J45.909 Unspecified asthma, uncomplicated; M06.4 Inflammatory polyarthropathy; G89.4 Chronic pain syndrome; M41.85 Other forms of scoliosis, thoracolumbar region; M46.1 Sacroiliitis, not elsewhere classified; Z79.51 Long term (current) use of inhaled steroids; Z79.899 Other long term (current) drug therapy; Z98.890 Other specified postprocedural states; Z87.891 Personal history of nicotine dependence
CPT/HCPCS: 19301; 88307; 88329; J0131; J0690; J1100; J2250; J2371; J2405; J2704; J2795; J3010

== ENCOUNTER → 2025-03-25 09:08 | Outpatient (BNV) | payer OTHER, SELFPAY | PROVIDERS: PCP Student in an Organized Health Care Education/Training Program; Visit Provider Surgery | DX: N60.81 Other benign mammary dysplasias of right breast (principal) | CPT/HCPCS: 19301 ==

== ENCOUNTER 2025-03-30 16:24 | Outpatient (REF) | payer OTHER, SELFPAY | END 2025-03-30 16:25 | disposition home or self-care (01) | LOC: HO.US 16:24 | PROVIDERS: PCP Student in an Organized Health Care Education/Training Program; Visit Provider Student in an Organized Health Care Education/Training Program | DX: Z13.89 Encounter for screening for other disorder (principal) ==

== ENCOUNTER 2025-03-31 08:19 | Outpatient (REF) | payer OTHER, SELFPAY ==
[2025-03-31 11:28] LABS: MANUAL DIFF FLAG NO
[2025-03-31 11:46] LABS: Basophils Absolute Auto 0.1 X10*3/uL (0.0-0.2); Basophils Percent Auto 0.6 % (0-2); Eosinophils Absolute Auto 0.2 X10*3/uL (0.0-0.4); Eosinophils Percent Auto 2.6 % (0-4); Hematocrit 39.8 % (37.0-47.0); Imm Gran Abs Auto 0.02 X10*3/uL (0.00-0.03); Imm Gran Pct Auto 0.2 % (0.0-0.4); Lymphocytes Absolute Auto 3.6 X10*3/uL (1.2-4.9); Lymphocytes Percent Auto 42.6 % (20-40); Mean Corpuscular HGB Conc 32.7 g/dl (31.0-35.0); Mean Corpuscular Hemoglobin 30.2 pg (27.0-33.0); Mean Corpuscular Volume 92.6 fL (80.0-98.0); Mean Platelet Volume 11.3 fL (9.4-12.3); Monocytes Absolute Auto 0.8 X10*3/uL (0.1-1.2); Monocytes Percent Auto 9.1 % (2-11); Neutrophils Absolute Auto 3.8 x10*3/uL (2.0-8.3); Neutrophils Percent Auto 44.9 % (45-73); Platelet Count 289 X10*3/uL (160-400); Red Cell Distribution Width 12.9 % (11.0-16.0); White Blood Count 8.5 X10*3/uL (4.8-10.8)
[2025-03-31 13:06] LABS: Anion Gap 14 (12-20)
[2025-03-31 13:07] LABS: Alanine Aminotransferase 12 U/L (0-31); Albumin Level 3.8 g/dL (3.5-5.0); Alkaline Phosphatase 95 U/L (39-117); Aspartate Amino Transferase 22 U/L (5-31); Bilirubin Total 0.3 mg/dL (0.0-1.0); Blood Urea Nitrogen 15 mg/dL (9-16); C Reactive Protein 0.81 mg/dL (< or = 0.50); Calcium 9.2 mg/dL (8.4-10.2); Carbon Dioxide 27 mmol/L (22-29); Chloride 104 mmol/L (96-108); Estimated Glomerular Filt Rate > 60; Glucose Random 84 mg/dL (60-115); Potassium 3.9 mmol/L (3.3-5.1); Sodium 141 mmol/L (135-145); Total Protein 7.3 g/dL (6.5-8.0)
[2025-03-31 13:18] LABS: TSH reflex Free T4 2.16 uIU/mL (0.32-4.0)
[2025-03-31 15:53] LABS: Uric Acid 5.5 mg/dL (2.4-5.7)
[2025-03-31 16:03] LABS: Rheumatoid Factor < 13.0 IU/mL (<15.0)
[2025-04-01 12:03] LABS: Anti Nuclear Antibody Screen NEGATIVE (NEGATIVE)
[2025-04-02 13:28] LABS: Cyclic Citrullinated Peptide <16 UNITS
== END 2025-03-31 08:20 | disposition home or self-care (01) ==
LOC: HO.HHCL 08:19
PROVIDERS: Visit Provider Student in an Organized Health Care Education/Training Program
DX: M25.50 Pain in unspecified joint (principal)
CPT/HCPCS: 36415; 80053; 84443; 84550; 85025; 86038; 86140; 86200; 86431

== ENCOUNTER 2025-04-03 10:29 | Outpatient (AMB) | payer OTHER, SELFPAY ==
--- NOTE | 2025-04-03 10:30 | A.OFFVIS_ITS ---
Vital Signs 3 04/03/25 10:37 Height 4 ft 9 in Weight 116 lb 6 oz BMI 25.2 BP 111/57 L Blood Pressure Location Lt brachial Position Sitting Pulse 77 Intake Visit Reasons: S/P Rt. breast lumpectomy w/localizer Intake Note: Patient is seen in office for post op assessment post right breast lumpectomy. Pt c/o: sore and tender, denies redness, discharge or other concerns surgery:03/25/25 Blower Feeder Dyed Raw Stock Required: No Accompanied by: Self / Same As Patient Allergies No Known Allergies [No Known Allergies*] Allergy (Verified 03/25/25 09:44) HPI Comments Details: 64-year-old female patient presenting with a screening mammogram performed on 11/27/2024 in additional mammographic views and ultrasound performed on 12/18/2024. This revealed a solid irregular mass in the 10 o'clock position, 4 cm from the nipple. Ultrasound-guided core needle biopsy is recommended. (BI-RADS 4). She reports a previous history of a palpable mass in the left breast in the which initially was going to be biopsy but subsequently resolved spontaneously. She denies any other breast surgeries. Currently she denies any breast symptoms of pain, redness, discharge, palpable mass or enlarged lymph nodes. Her family history is negative for breast cancer. She is and her 1st child was born when she was 16. Her menarche was at age 14. She underwent right breast ultrasound-guided core biopsy on 01/21/2025. Pathology revealed focal intraductal proliferation, suspicious, but not diagnostic for atypical ductal hyperplasia. Additional sampling is recommended. She subsequently underwent a right breast lumpectomy on 03/25/2025 as a short-stay surgery. Subsequent pathology revealed fibrocystic change and radial sclerosing lesion/radial scars with florid usual ductal hyperplasia, columnar cell change and hyperplasia, sclerosing adenosis and apocrine metaplasia. Biopsy site changes were noted no atypia or malignancy was identified. [facility] Medical History Insomnia Asthma HIV disease Inflammatory arthritis Sacroiliitis Chronic pain syndrome Scoliosis of thoracolumbar spine Surgical History History of lumpectomy of right breast (03/25/25) Hx of esophagogastroduodenoscopy History of liver biopsy History of back surgery Hx of tubal ligation Family History Mother CVD (cardiovascular disease) Diabetes Father CVD (cardiovascular disease) Sister Cancer Diabetes Social History Household Members Other:: granddaughter Are you a primary floor care technician to a significant other at home: No Do you presently have visiting nurse or other home services: No Alcohol intake: never Patient Tobacco Use Status: Current someday Tobacco user Tobacco use type: Cigarette Female Reproductive History Menstrual Age of Menarche: 14 Physical Exam Const General: no acute distress Nutritional Appearance: well nourished Orientation/consciousness: patient oriented x3 Limitations: no limitations Chest Other: Well-healed incision in the right breast without redness or discharge, no seroma or hematoma appreciated. Steri-Strips remain intact. Chest/axillae images: 2 1. Incision right breast upper outer quadrant Resp Effort & Inspection: normal respiratory effort, no audible wheezes and no cough Skin Other: Warm, dry, no rash Neuro General: patient oriented x3 Extrem Other: No edema Assessment & Plan Assessment & Plan (1) Abnormal ultrasound of breast: Code(s): R92.8 - Other abnormal and inconclusive findings on diagnostic imaging of breast Category: Medical (2) Abnormal mammogram of right breast: Code(s): R92.8 - Other abnormal and inconclusive findings on diagnostic imaging of breast Category: Medical Plan 64-year-old female patient presenting with a recent mammogram and ultrasound which revealed a suspicious density in the right breast at 10:00 o'clock position. This was felt to be suspicious for malignancy and biopsy was recommended. She underwent ultrasound-guided core biopsy of the right breast on 01/21/2025. This revealed focal intraductal peripheral duration suspicious but not diagnostic for atypical ductal hyperplasia. Additional sampling was recommended. She subsequently underwent a right breast lumpectomy on 03/25/2025. This revealed fibrocystic change and radial sclerosing lesion/radial scars with florid usual ductal hyperplasia, columnar cell change and hyperplasia, sclerosing adenosis, and apocrine metaplasia. No atypia or malignancy was identified. She tolerated the procedure well and her wounds are healing nicely. No further intervention is required at this time. She should continue with routine screening and should follow up as needed. Coding Level of Care Code Global (03812) Diagnoses Abnormal ultrasound of breast R92.8 Abnormal mammogram of right breast R92.8
[2025-04-03 10:37] VITALS: BP 111/57; PULSE 77; BMI 25.2
== END 2025-04-03 10:44 | disposition home or self-care (01) ==
LOC: HO.HGS 10:29
PROVIDERS: PCP Student in an Organized Health Care Education/Training Program; Visit Provider Surgery
DX: R92.8 Other abnormal and inconclusive findings on diagnostic imaging of breast (principal)
CPT/HCPCS: 99024

== ENCOUNTER → 2025-04-03 10:29 | Outpatient (BNVA) | payer OTHER, SELFPAY | PROVIDERS: PCP Student in an Organized Health Care Education/Training Program; Visit Provider Surgery | DX: R92.8 Other abnormal and inconclusive findings on diagnostic imaging of breast (principal) | CPT/HCPCS: 99212 ==

== ENCOUNTER 2025-04-14 16:10 | Outpatient (REF) | payer OTHER, SELFPAY | END 2025-04-14 16:11 | disposition home or self-care (01) | LOC: HO.LNP 16:10 | PROVIDERS: Visit Provider Advanced Practice Midwife | DX: Z12.4 Encounter for screening for malignant neoplasm of cervix (principal) | CPT/HCPCS: 87626; 88112; 88175 ==

== ENCOUNTER 2025-04-16 08:26 | Outpatient (REF) | payer OTHER, SELFPAY ==
--- NOTE | ~2025-04-16 | US_ITS ---
EXAMINATION: US LOWER EXTREMITY VENOUS (REFLUX EXAM), BILATERAL CLINICAL INFORMATION: Varices COMPARISON: None. TECHNIQUE: Color flow triplex imaging and compression Doppler was performed to evaluate both the deep and the superficial systems bilaterally. To evaluate the superficial system, the examination was performed in the upright position. Color-flow Doppler ultrasound and compression ultrasound were utilized. In addition, maneuvers were utilized to demonstrate reflux. FINDINGS: 1. DEEP VENOUS ULTRASOUND OF THE RIGHT LOWER EXTREMITY: Common Femoral Vein: Compressible, normal respiratory variation and augmented flow. Femoral Vein: Compressible, normal color flow and augmentation. Popliteal Vein: Compressible, normal augmentation. Deep Reflux: There is no evidence of reflux in the deep system in either the common femoral vein, superficial femoral or the popliteal vein. There is no evidence of a Coppola's cyst. 2. SUPERFICIAL ULTRASOUND WITH DOPPLER OF RIGHT LOWER EXTREMITY: GREAT SAPHENOUS VEIN: Saphenofemoral Junction: 0.8 cm; Reflux: 0 ms Proximal Thigh: 0.2 cm; Reflux: 0 ms Mid Thigh: 0.2 cm; Reflux: 0 ms Distal Thigh: 0.3 cm; Reflux: 0 ms At Knee: 0.2 cm; Reflux: 0 ms Proximal Calf: 0.2 cm; Reflux: 0 ms Mid Calf: 0.3 cm; Reflux: 0 ms Distal Calf: 0.3 cm; Reflux: 0 ms DUPLICATED MEDIAL GREAT SAPHENOUS VEIN: Diameter: None imaged Reflux: NA DUPLICATED LATERAL GREAT SAPHENOUS VEIN: Diameter: 0.4 cm. Reflux: NA SMALL SAPHENOUS VEIN: Saphenopopliteal Junction: 0.1 cm; Reflux: 0 ms Proximal: 0.1 cm; Reflux: 0 ms Distal: 0.1 cm; Reflux: 0 ms VEIN OF GIACOMINI: Size: NA Reflux: NA PERFORATORS: Location: None imaged Size: NA Reflux: NA VARICOSITIES: Location: None imaged. Size: NA Reflux: NA 3. DEEP VENOUS ULTRASOUND OF THE LEFT LOWER EXTREMITY: Common Femoral Vein: Compressible, normal respiratory variation and augmented flow. Femoral Vein: Compressible, normal color flow and augmentation. Popliteal Vein: Partial compressibility. Intraluminal echogenic abnormality. Deep Reflux: 1120 ms in the mid femoral vein and 2292 ms at the popliteal vein. There is no evidence of a Coppola's cyst. 4. SUPERFICIAL ULTRASOUND WITH DOPPLER OF LEFT LOWER EXTREMITY: GREAT SAPHENOUS VEIN: Saphenofemoral Junction: 0.8 cm; Reflux: 0 ms Proximal Thigh: 0.4 cm; Reflux: 0 ms Mid Thigh: 0.4 cm; Reflux: 0 ms Distal Thigh: 0.5 cm; Reflux: 0 ms At Knee: 0.4 cm; Reflux: 0 ms Proximal Calf: 0.2 cm; Reflux: 0 ms Mid Calf: 0.2 cm; Reflux: 0 ms Distal Calf: 0.3 cm; Reflux: 0 ms DUPLICATED MEDIAL GREAT SAPHENOUS VEIN: Diameter: 0.3 cm. Reflux: 916 ms DUPLICATED LATERAL GREAT SAPHENOUS VEIN: Diameter: 0.3 cm. Reflux: NA SMALL SAPHENOUS VEIN: Saphenopopliteal Junction: 0.2 cm; Reflux: 0 ms Proximal: 0.2 cm; Reflux: 0 ms Distal: 0.2 cm; Reflux: 0 ms VEIN OF GIACOMINI: Size: 0.4 cm. Reflux: NA PERFORATORS: Location: Mid thigh. Proximal and mid calf. Size: 0.2 cm. Reflux: NA VARICOSITIES: Location: Proximal to mid calf. Size: 0.3-0.4 cm. Reflux: NA US/US venous insuf bilat IMPRESSION: Right: No venous insufficiency. No gross varices. Left: Venous insufficiency, medial accessory great saphenous vein at the femoral vein junction. Varices and perforators without reflux. Probable chronic nonocclusive thrombus, left popliteal vein. Electronically signed by: Benji Will MD 04/16/2025 02:39 PM EDT
== END 2025-04-16 08:27 | disposition home or self-care (01) ==
LOC: HO.US 08:26
PROVIDERS: PCP Student in an Organized Health Care Education/Training Program; Visit Provider Student in an Organized Health Care Education/Training Program
DX: R60.0 Localized edema (principal)
CPT/HCPCS: 93970

== ENCOUNTER → 2025-04-16 08:28 | Outpatient (BNV) | payer OTHER, SELFPAY | PROVIDERS: PCP Student in an Organized Health Care Education/Training Program; Visit Provider Radiology Diagnostic Radiology | DX: I83.92 Asymptomatic varicose veins of left lower extremity (principal); I87.2 Venous insufficiency (chronic) (peripheral) | CPT/HCPCS: 93970 ==

== ENCOUNTER 2025-04-30 12:57 | Outpatient (AMB) | payer OTHER, SELFPAY ==
--- NOTE | 2025-04-30 13:04 | A.OFFVIS_ITS ---
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 She states she has some swelling , pain, cramping and numbness in her left leg only. 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 We utilized a video director food and beverage. She states she has been seen in [place], years ago, for similar complaints. She was placed on Coumadin for awhile due to a blood clot found in her left popliteal vein. She states she continued that medication until she came to the [place]. She states she has itching and burning around her left ankle and swelling of the foot/ankle, worse at night. She does elevate her legs in a recliner, which she states does not help much. She states she has some spots on her ankle as well. She is a former smoker and is not a diabetic. She denies any claudication symptoms. She states the symptoms have not worsened over the years. [facility] Medical History Insomnia Asthma HIV disease Inflammatory arthritis Sacroiliitis Chronic pain syndrome Scoliosis of thoracolumbar spine Surgical History History of lumpectomy of right breast (03/25/25) Hx of esophagogastroduodenoscopy History of liver biopsy History of back surgery Hx of tubal ligation Family History Mother CVD (cardiovascular disease) Diabetes Father CVD (cardiovascular disease) Sister Cancer Diabetes Social History Household Members Other:: granddaughter Are you a primary customer care coordinator to a significant other at home: No Do you presently have visiting nurse or other home services: No Alcohol intake: never Patient Tobacco Use Status: Current someday Tobacco user Tobacco use type: Cigarette Female Reproductive History Menstrual Age of Menarche: 14 Review of Systems Const Reports as per HPI and Denies weakness ENT Reports Normal hearing present and Denies dizziness Card Reports as per HPI, Denies chest pain, Denies chest pain at rest, Denies chest pain with activity, Denies dyspnea and Denies dyspnea on exertion Resp Reports as per HPI, Denies cough, Denies dyspnea and Denies dyspnea on exertion GI Reports as per HPI, Denies abdominal pain, Denies nausea and Denies vomiting Musc Denies numbness Skin/Breast Reports as per HPI, Denies erythema and Denies wounds Neuro Reports Normal hearing present, Denies dizziness, Denies numbness, Denies Sensory deficit (Neuro) and Denies weakness Psych Reports no additional complaints Endo Reports no additional complaints Physical Exam Const General: healthy appearing and no acute distress Orientation/consciousness: patient oriented x3 HEENT Head: Yes normal to inspection Ears: hearing grossly normal bilaterally Mouth: Normal oral and palatal mucosa present Resp Effort & Inspection: normal respiratory effort and able to speak in complete sentences Auscultation: clear to auscultation bilaterally Cardio Jugular venous distension: no JVD Rate: regular rate Rhythm: regular rhythm Heart sounds: S1 normal heart sound present and S2 normal heart sound present Bruits: no abdominal aortic bruits, no carotid bruits, no femoral bruits and no renal bruits Peripheral pulses: Peripheral pulses 2+ throughout GI Inspection: Yes normal to inspection Palpation (GI): No Abdominal aortic bruit present Skin General skin exam: no rashes or lesions noted Wounds: no wounds Hair: normal Neuro General: patient oriented x3 Cranial nerves: Yes Normal hearing present Cognition (Neuro): normal cognition Gait exam (Neuro): Normal gait present Motor exam (neuro): 5/5 motor strength present throughout Sensory Exam: No Sensory deficit (Neuro) Extrem Other: Left lower extremity: trace peripheral edema noted. Cluster of telangiectasia noted around the medial ankle. Palpable DP pulse. No varicosities noted. General: Yes normal to inspection, Yes full ROM, Yes capillary refill normal and Yes normal gait Results Reviewed Results Reviewed: Brief summary of venous insufficiency testing is as follows: right great saphenous vein: negative right small saphenous vein: negative right accessory vein: none present left great saphenous vein: negative left small saphenous vein: negative left accessory vein: none present Please note there is no evidence of any venous aneurysms or significant tortuosity Chronic nonocclusive thrombus in the left popliteal vein. Assessment & Plan Assessment & Plan (1) Varicose veins of both lower extremities with inflammation: Code(s): I83.11 - Varicose veins of right lower extremity with inflammation; I83.12 - Varicose veins of left lower extremity with inflammation Category: Medical Plan: Evita is presenting today on a referral from her PCP for concerns of ongoing VV >25y. Her PCP ordered a US, performed on 04/16/25, which revealed no insufficiency. She was found to have a chronic nonocclusive thrombus in the left popliteal vein; she has paperwork from [place] that she had that and was treated for it in 1998 with Coumadin. She is endorsing discomfort around her left ankle, where there is some spider veins. I discussed with her that we cannot treat those in the office. We recommended conservative measures with elevation, compression socks, and physical activity. We discussed that there is currently no need to treat the blood clot either. We discussed that if she has any vascular concerns in the future, to reach out to us. Thank you for allowing us to participate in the patient's care. If there are any questions or concerns, please do not hesitate to reach out to us. Coding Level of Care Code New Pt Level 4 (41349) Diagnoses Varicose veins of both lower extremities with inflammation I83.11; I83.12 Comment review of US
== END 2025-04-30 13:28 | disposition home or self-care (01) ==
LOC: HO.HVS 12:57
PROVIDERS: PCP Student in an Organized Health Care Education/Training Program; Visit Provider Physician Assistant Surgical
DX: I83.11 Varicose veins of right lower extremity with inflammation (principal); I83.12 Varicose veins of left lower extremity with inflammation
CPT/HCPCS: 99204

== ENCOUNTER → 2025-04-30 12:57 | Outpatient (BNVA) | payer OTHER, SELFPAY | PROVIDERS: PCP Student in an Organized Health Care Education/Training Program; Visit Provider Physician Assistant Surgical | DX: I83.11 Varicose veins of right lower extremity with inflammation (principal); I83.12 Varicose veins of left lower extremity with inflammation | CPT/HCPCS: 99202 ==

== ENCOUNTER 2025-07-02 15:58 | Outpatient (REF) | payer OTHER, SELFPAY ==
--- NOTE | ~2025-07-02 | XR_ITS ---
EXAMINATION: XR CHEST CLINICAL INFORMATION: cough 4 days with yellow phlegm, no fever COMPARISON: Chest radiograph on February 13, 2019 TECHNIQUE: 2 views of the chest were obtained. FINDINGS: Lungs: No focal consolidation. No evidence of edema Pleura: No pleural effusion or pneumothorax. Heart/Mediastinum: Unchanged cardiomediastinal silhouette. Known hiatal hernia. Bones: Marked scoliosis. XR/XR chest 2V IMPRESSION: No acute cardiopulmonary process. Electronically signed by: Angeles Mota MD 07/02/2025 04:25 PM EDT
== END 2025-07-02 15:59 | disposition home or self-care (01) ==
LOC: HO.HHCX 15:58
PROVIDERS: Visit Provider Family Medicine
DX: J06.9 Acute upper respiratory infection, unspecified (principal)
CPT/HCPCS: 71046

== ENCOUNTER → 2025-07-02 15:59 | Outpatient (BNV) | payer OTHER, SELFPAY | PROVIDERS: Visit Provider Radiology Body Imaging | DX: R05.9 Cough, unspecified (principal) | CPT/HCPCS: 71046 ==